=== PATIENT | female | born 1950 | race Hispanic/Latino ===

== ENCOUNTER 2016-07-31 09:07 | Day surgery (SDC) | payer OTHER ==
[~2016-07-31 09:07] MED LIST: ASPI-973 PO; ATOR80TA77 PO; FLUO40CA PO; GABA-502 PO; GLYB2.5T4 PO; ISOS120T6 PO; LORA0.5T PO; Lidocaine Topical 2% 30 mL Jelly ONE; MAGN400T4 PO; MECL-114 PO; METF500T4 PO; MULT-666 PO; NITR0.4T6 SL; OXYC5TAB72 PO; PANT40TA3 PO; PRAM0.256 PO; RANO10003 PO; TACR30OI4 TOP; TIZA4TAB4 PO
== END 2016-07-31 23:59 | disposition home or self-care (01) ==
LOC: END 09:07
PROVIDERS: ATTEND Internal Medicine Gastroenterology
DX: K44.9 Diaphragmatic hernia without obstruction or gangrene (principal); K22.4 Dyskinesia of esophagus; K21.9 Gastro-esophageal reflux disease without esophagitis; R13.10 Dysphagia, unspecified; D64.9 Anemia, unspecified; E78.5 Hyperlipidemia, unspecified; G47.33 Obstructive sleep apnea (adult) (pediatric); E11.9 Type 2 diabetes mellitus without complications; I25.10 Atherosclerotic heart disease of native coronary artery without angina pectoris; Z79.82 Long term (current) use of aspirin; Z79.84 Long term (current) use of oral hypoglycemic drugs; Z79.891 Long term (current) use of opiate analgesic; Z95.1 Presence of aortocoronary bypass graft

== ENCOUNTER 2016-08-20 11:32 | Observation (INO) | payer OTHER ==
[~2016-08-20] VITALS: Ht 154.9 cm; Wt 89.3 kg
[~2016-08-20 11:32] MED LIST changes: -Lidocaine Topical 2% 30 mL Jelly ONE
[2016-08-20 11:52] VITALS: BP 76/51; PULSE 61; RESP 15; O2SAT 95
[2016-08-20] MEDS ORDERED: 0.9% Sodium Chloride 1,000 ML IV ONE ×2 (12:07→14:40)
--- NOTE | 2016-08-20 12:07 | ED.REPORT ---
HPI-General Illness Date of Service Aug 20, 2016 ED Provider: Edward Francis MD 66 year old female with a history of diabetes, CAD, HTN, and hyperlipidemia presents to the ER accompanied by multiple female family members with intermittent pre-syncopal episodes since 04/2016. Typically these episodes are associated with exertion and can last over an hour. Symptoms are relieved with rest. Associated symptoms include low BP, palpitations, lethargy and decreased LOC with symptom onset. Patient also reports occasional chest pain and shortness of breath with exertion, though also sometimes occurring at rest. She denies any instances of LOC. Symptoms tend to resolve on their own. Patient is a poor historian. Nursing Notes Stated Complaint: LOW BLOOD SUGAR Chief Complaint: General Complaint Nursing Notes Reviewed: Yes Allergies: Coded Allergies: Penicillins (Verified Allergy, Severe, RASH, 08/20/16) TAPE (Verified Allergy, Intermediate, rash, 08/20/16) Scheduled Aspirin (Aspirin) 81 Mg Tablet 81 MG PO DAILY Atorvastatin Calcium (Atorvastatin Calcium) 80 Mg Tablet 80 MG PO DAILY Fluoxetine (Fluoxetine) 40 Mg Capsule 40 MG PO DAILY Gabapentin (Gabapentin) 300 Mg Capsule 300 MG PO QAM Gabapentin (Gabapentin) 300 Mg Capsule 300 MG PO every afternoon Gabapentin (Gabapentin) 300 Mg Capsule 600 MG PO HS Glyburide (Glyburide) 2.5 Mg Tablet 2.5 MG PO DAILY Isosorbide MN ER (Isosorbide MN ER) 120 Mg Tab.er.24h 30 MG PO DAILY Lisinopril (Lisinopril) 20 Mg Tablet 20 MG PO BID Magnesium Oxide (Magnesium Oxide) 400 Mg Tablet 400 MG PO BID Metformin (Metformin) 500 Mg Tablet 500 MG PO BID Multivitamin (Once Daily) 1 Each Tablet 1 EACH PO DAILY Pantoprazole DR (Pantoprazole DR) 40 Mg Tablet.dr 40 MG PO DAILY Pramipexole Dihydrochloride (Pramipexole Dihydrochloride) 0.25 Mg Tablet 0.5 MG PO TID Ranolazine ER (Ranexa) 1,000 Mg Tablet 1,000 MG PO BID Tizanidine (Tizanidine) 4 Mg Tablet 4 MG PO BID Scheduled PRN Lorazepam (Lorazepam) 0.5 Mg Tablet 0.5 MG PO TID PRN PRN For Anxiety Meclizine (Bonine) 25 Mg Tab.chew 25 MG PO TID PRN PRN For Dizziness Metoclopramide (Metoclopramide) 10 Mg Tablet 10 MG PO QID PRN PRN For Nausea Nitroglycerin SL (Nitroglycerin SL) 0.4 Mg Tab.subl 0.4 MG SL Q5MIN PRN PRN For Chest Pain Tacrolimus (Tacrolimus) 30 Gm Oint...g. 1 APPLIC TOP BID PRN PRN rash oxyCODONE (oxyCODONE) 5 Mg Tablet 5 MG PO q6 hours PRN PRN For Pain General Time Seen by MD: 12:06 Chief Complaint Other (Pre-Syncope) Hx Obtained From: Patient Arrived By: Walk-in Sudden in Onset?: No Onset Occurred: More than a week ago... 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 Past Medical History Gastroporesis Anxiety Chronic pain Sleep apnea Tinnitis Reports: Coronary artery disease, Diabetes mellitus, Hyperlipidemia, Hypertension Reports: Depression Past Surgical History Triple bypass 2009 Cardiac Cath 2012 Laminectomy Bladder sling Family History Noncontributory Smoking History Never Smoker Social History Alcohol Use: Denies alcohol use Drug Use: Denies drug use Other Social History: Good social support, Local resident Ambulatory Status Independent Review of Systems Full Review of Systems Constitutional: Reports: Lethargy, Denies: Chills, Fever Respiratory: Reports: Shortness of breath, Denies: Non-productive cough Cardiovascular: Reports: Chest pain, Palpitations GI: Reports: Diarrhea, Denies: Nausea, Vomiting Neurologic: Reports: Change LOC, Dizziness, Lightheaded, Denies: Focal weakness, Headache, Numbness, Slurred speech, Syncope, Unable to speak, Vision change Complete sys rev & neg: except as marked. Physical Exam Vital Signs Vital Signs Date Time Temp Pulse Resp B/P Pulse Ox O2 Delivery O2 Flow Rate FiO2 08/20/16 13:23 54 20 98/47 100 08/20/16 11:52 35.6 61 15 76/51 95 Room Air Initial VS: Reviewed Head / Eyes: Atraumatic, Normocephalic Neck: Supple, Non-tender, Full range of motion Extremities: Vascular intact, Neuro intact, No swelling, No tenderness Skin: Warm, Dry, No cyanosis Psychiatric: Mood/affect normal, Behavior normal, Normal thought content General/Constitutional: Awake, Alert, No acute distress, Well appearing, Well developed, Well hydrated, Well nourished, Cooperative Respiratory / Chest: Breath sounds NL, No respiratory distress, No rales, No rhonchi, No wheezing Cardiovascular: Heart rate NL, Regular rhythm, Heart sounds NL Heart Sounds / Murmur: Positive: Systolic murmur present.. (II/) Neurologic: Oriented X3, Speech NL, No motor deficits, No sensory deficits Interpretation & Diagnostics Lab Results Interpretation Result Diagram: 08/20/16 1210 08/20/16 1210 Test 08/20/16 12:10 White Blood Count 10.2th/mm3 (3.8-10.1) Red Blood Count 3.86mil/mm3 (3.90-5.20) Hemoglobin 11.7g/dL (12.0-15.6) Hematocrit 35.8% (35.0-46.0) Mean Corpuscular Volume 92.7fL (81-100) Mean Corpuscular Hemoglobin 30.3pg (27.0-35.0) Mean Corpuscular Hemoglobin Concent 32.7% (32.0-37.0) Red Cell Distribution Width 12.8% (12.3-15.4) Platelet Count 273bil/L (150-400) Neutrophils (%) (Auto) 64.2% (40-74) Lymphocytes (%) (Auto) 28.2% (14-46) Monocytes (%) (Auto) 5.8% (4-12) Eosinophils (%) (Auto) 1.4% (0-5) Basophils (%) (Auto) 0.2% (0-3) Sodium Level 135mEq/L (134-144) Potassium Level 4.4mEq/L (3.5-5.2) Chloride Level 97mEq/L (97-108) Carbon Dioxide Level 21mmol/L (18-29) Blood Urea Nitrogen 17mg/dL (8-27) Creatinine 1.23mg/dL (0.57-1.00) Estimat Glomerular Filtration Rate 63mL/min (>59) Glucose Level 170mg/dL (60-99) Calcium Level 9.1mg/dL (8.5-10.1) Total Bilirubin 0.4mg/dL (0.0-1.2) Aspartate Amino Transf (AST/SGOT) 16U/L (0-50) Alanine Aminotransferase (ALT/SGPT) 14U/L (0-32) Alkaline Phosphatase 75U/L (25-165) Total Protein 6.6g/dL (6.4-8.4) Albumin 4.1g/dL (3.4-5.0) ECG Interpretation ECG Interpretation: Sinus rhythm, rate [address] segment changes T wave inversion in anteroseptal leads and diffuse T wave flattening When compared to ECG 06/16/2016 there are no significant changes Time: 13:21 Interpreted by: ED physician Re-Eval/Medical Decision Med Decision/Clinical Course 66 year old female with a history of diabetes, CAD, HTN, and hyperlipidemia presents to the ER accompanied by multiple female family members with intermittent pre-syncopal episodes since 04/2016. Typically these episodes are associated with exertion and can last over an hour. Symptoms are relieved with rest. Associated symptoms include low BP, palpitations, lethargy and decreased LOC with symptom onset. Patient provides very limited history and seems to lack insight into her underlying medical condition. Upon arrival she is quite hypertensive with a systolic blood pressure in the 70s spell responds quickly to fluid bolus and has normal mentation. Examination reveals significant systolic murmur and upon chart review I see that echocardiogram obtained last year demonstrated dilated right ventricle with significant evidence of pulmonary hypertension and right to left intracardiac shunt. Laboratory studies were notable as below: Leukocytosis 10.2 Stable hematocrit Creatinine 1.23 No significant electrolyte abnormalities Negative troponin After fluid bolus blood pressure stabilized, patient remained with normal neurologic status. Patient discussed with cardiology and echocardiogram as above reviewed. At this time my suspicion is that the patient's presyncopal episodes are related to low cardiac output in the setting of known significant pulmonary hypertension and right to left shunt causing systemic circulation of the deoxygenated blood. The patient seems to lack insight into her underlying problems stating that she has been seen by tinsmith apprentice and told that her " heart is fine". I feel that at this time the patient requires further workup and likely repeat echocardiogram to further evaluate the degree of her shunt and coronary hypertension. She has now been stabilized and I feel that she is appropriate for admission to the CCU. Patient was discussed with accepting hospitalist and consultation with cardiology. Source of Hx: Old records Time of Eval: 14:26 Re-Evaluation/Progress Note: Discussed lab and physical examination findings and need for admission. Patient is amenable to the plan. Consultation #1: Referral / Consult Name: Genoveva Bueno MD Consulted With: Hospitalist Call Returned at: 14:35 Etl Manager: Agrees with eval, Agrees with plan, Accepts admit Consultation #2: Referral / Consult Name: Brandon Humphries MD Consulted With: Cardiology Call Returned at: 14:39 Etl Manager: Will see patient Counseled Regarding: Diagnosis, Lab results, Need for admission Discharge & Departure Primary Impression: Pre-syncope Additional Impressions: Hypotension Hypotension type: unspecified hypotension type Qualified Code: I95.9 - Hypotension, unspecified Pulmonary hypertension Right to left cardiac shunt Altered mental status Altered mental status type: unspecified Qualified Code: R41.82 - Altered mental status, unspecified Disposition: ADMITTED TO HOSPITAL Discharge Condition All VS Reviewed: Yes Condition: Stable Referrals: Yehuda Garcia MD (PCP) Crit Care Except Billable Proc Time Spent: 105-134 minutes Services Performed: Patient management by me, Time spent at bedside, Reviewing test results, Reviewing imaging, Discussing patient care, Documentation in record, Time with fam/surrogate Critical Care Notes: Reviewing old records, discussion with tinsmith apprentice, discussion with the patient and discussing with accepting physician in addition to documentation in reviewing laboratory results/studies. Vlad Attestation Portions of this note were transcribed by Woodrow Quiroz. I, Dr. Francis, personally performed the history, physical exam and medical decision-making; I reviewed and confirmed the accuracy of the information in the transcribed note. Signed by: Vlad Mc, 08/20/2016 and 14:39 copies to: Yehuda Garcia MD, Beck O MD Aug 20, 2016 12:07 WOODROW QUIROZ Aug 20, 2016 13:25
[2016-08-20 12:27] LABS: BASOPHILS % (AUTO) 0.2 % (0-3); EOSINOPHILS % (AUTO) 1.4 % (0-5); MONOCYTES % (AUTO) 5.8 % (4-12); Mean Corpuscular Hemoglobin 30.3 pg (27.0-35.0); Mean Corpuscular Volume 92.7 fL (81-100); NEUTROPHILS % (AUTO) 64.2 % (40-74); Platelet Count 273 bil/L (150-400)
[2016-08-20 13:23] VITALS: BP 98/47; PULSE 54; RESP 20; O2SAT 100
[2016-08-20] MEDS ORDERED: Ondansetron 2 mg/mL 2 mL Inj IVPUSH PRN (17:10)
[2016-08-20] MEDS ORDERED: Alum-Mag Hydrox-Simeth 30 mL Suspension PO PRN (17:10)
[2016-08-20] MEDS ORDERED: Polyethylene Glycol (PEG) 17 Gm Powder PO PRN (17:10)
[2016-08-20] MEDS ORDERED: LORazepam 0.5 mg Tablet PO PRN (17:25)
--- NOTE | 2016-08-20 17:40 | PCM.HPMED ---
Subjective Date of Service Aug 20, 2016 Primary Provider: Admitting Physician: Genoveva Bueno MD Primary Care Physician: Yehuda Garcia MD Attending Physician: Genoveva Bueno MD Admit Status: From the Emergency Department, 23-Hour Observation, [facility] Telemetry Chief Complaint: Episodes of near syncope History of Present Illness: This is a 66-year-old female who presents to the emergency room with episodes of feeling very lightheaded these occur mostly with exertional activities such as cleaning the house. Does not happen at rest. She also describes that when these happen she checks her blood pressure and it is low. She denies any chest pain with these episodes at least recently but has had chest pain with them in the past. She notes they have been going on for at least a few weeks or longer. She was admitted here from June 16 to June 18 with hypotension and this was related to diarrhea and electrolyte abnormalities. She denies that these episodes are related to hypoglycemia. She did have an echocardiogram done 04/30/2016 and the reason for the study was hypotension. The results of this show left ventricle size is upper limits of normal. Left ventricle is hyperdynamic with an ejection fraction estimated to be 70-75%. Right ventricle is borderline dilated right ventricular systolic function is normal the atrial septum is aneurysmal. Bubble study with septal shift indicates right to left shunt moderate tricuspid regurgitation noted and compared to previous echo there was an increase in tricuspid regurgitation severity. Also compared to prior echo there it has been an increase in the severity of pulmonary hypertension. Review of Systems: Patient denies any fevers chills all other review of systems are reviewed and are negative except for as in history of present illness. Allergies Coded Allergies: Penicillins (Verified Allergy, Severe, RASH, 06/16/16) TAPE (Verified Allergy, Intermediate, rash, 06/16/16) Home Medications Scheduled Aspirin (Aspirin) 81 Mg Tablet 81 MG PO DAILY Atorvastatin Calcium (Atorvastatin Calcium) 80 Mg Tablet 80 MG PO DAILY Fluoxetine (Fluoxetine) 40 Mg Capsule 40 MG PO DAILY Gabapentin (Gabapentin) 300 Mg Capsule 600 MG PO BID 2 in the morning, 2 in the afternoon Glyburide (Glyburide) 2.5 Mg Tablet 2.5 MG PO DAILY Isosorbide MN ER (Isosorbide MN ER) 120 Mg Tab.er.24h 30 MG PO DAILY Magnesium Oxide (Magnesium Oxide) 400 Mg Tablet 400 MG PO BID Metformin (Metformin) 500 Mg Tablet 1,000 MG PO BID Multivitamin (Once Daily) 1 Each Tablet 1 EACH PO DAILY Pantoprazole DR (Pantoprazole DR) 40 Mg Tablet.dr 40 MG PO DAILY Pramipexole Dihydrochloride (Pramipexole Dihydrochloride) 0.25 Mg Tablet 0.375 MG PO TID Ranolazine ER (Ranexa) 1,000 Mg Tablet 1,000 MG PO BID Tacrolimus (Tacrolimus) 30 Gm Oint...g. 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 Past Medical History Gastroporesis Anxiety Chronic pain Sleep apnea Tinnitis Reports: Coronary artery disease, Diabetes mellitus, Hyperlipidemia, Hypertension Reports: Depression Past Surgical History Triple bypass 2010 Cardiac Cath 2013 Laminectomy Bladder sling Family History No history of cardiac disease Social History Hx Alcohol Use: No Hx Substance Use: No Hx Tobacco Use: No Smoking Status: Never Smoker Living Arrangement: with Family Exam Vital Signs Vital Sign - Last Date Time Temp Pulse Resp B/P Pulse Ox O2 Delivery O2 Flow Rate FiO2 08/20/16 17:10 36.6 66 20 125/52 99 Room Air Exam Constitutional: Middle-aged woman in no acute distress Head: Normocephalic atraumatic Eyes: PERRLA DC EOMI Mouth: No lesions neck: Carotids 2+ over 4 without bruits Chest: Clear to auscultation Cor: Regular rate and rhythm S1-S2 with 2/6 systolic ejection murmur Abdomen: Soft nontender bowel sounds present Extremities: No pedal edema Skin: No rashes Psych: Mood and affect are appropriate Neuro: Alert and oriented 3, motor strength is intact bilaterally Lab and Diagnostics Labs Laboratory Tests 72 Hours Test 08/20/16 12:10 White Blood Count 10.2th/mm3 (3.8-10.1) Red Blood Count 3.86mil/mm3 (3.90-5.20) Hemoglobin 11.7g/dL (12.0-15.6) Hematocrit 35.8% (35.0-46.0) Mean Corpuscular Volume 92.7fL (81-100) Mean Corpuscular Hemoglobin 30.3pg (27.0-35.0) Mean Corpuscular Hemoglobin Concent 32.7% (32.0-37.0) Red Cell Distribution Width 12.8% (12.3-15.4) Platelet Count 273bil/L (150-400) Neutrophils (%) (Auto) 64.2% (40-74) Lymphocytes (%) (Auto) 28.2% (14-46) Monocytes (%) (Auto) 5.8% (4-12) Eosinophils (%) (Auto) 1.4% (0-5) Basophils (%) (Auto) 0.2% (0-3) Sodium Level 135mEq/L (134-144) Potassium Level 4.4mEq/L (3.5-5.2) Chloride Level 97mEq/L (97-108) Carbon Dioxide Level 21mmol/L (18-29) Blood Urea Nitrogen 17mg/dL (8-27) Creatinine 1.23mg/dL (0.57-1.00) Estimat Glomerular Filtration Rate 63mL/min (>59) Glucose Level 170mg/dL (60-99) Calcium Level 9.1mg/dL (8.5-10.1) Total Bilirubin 0.4mg/dL (0.0-1.2) Aspartate Amino Transf (AST/SGOT) 16U/L (0-50) Alanine Aminotransferase (ALT/SGPT) 14U/L (0-32) Alkaline Phosphatase 75U/L (25-165) Troponin T < 0.010ug/L (0.0-0.011) Total Protein 6.6g/dL (6.4-8.4) Albumin 4.1g/dL (3.4-5.0) Result Diagram: 08/20/16 1210 08/20/16 1210 12-lead ECG Sinus rhythm rate of 60 with incomplete right bundle branch block no acute abnormalities noted compared to previous EKG in June. There is T-wave inversion in anterior septal leads and diffuse T-wave flattening. Assessment & Plan # Recurrent episodes of near syncope with exertional activity, subacute, present on admission Will recheck echocardiogram Cardiology was notified by OLGA Rodriguez regarding consultation Check serial troponins We will also anticipate nuclear pharmacological stress test tomorrow unless cardiology decides otherwise Keep on telemetry # Type II diabetes, chronic, present on admission Check 4 times a day blood sugars and place on subcutaneous insulin protocol Given procedure tomorrow we will go ahead and hold metformin and glipizide # DVT prophylaxis Place on subcutaneous Lovenox # CODE STATUS Patient is full code Pain Evaluation: Adequate Pain Control Resuscitation Status: CPR: Attempt Resuscitation Time spent 60 minutes Genoveva Bueno MD Aug 20, 2016 17:39
[2016-08-20] MEDS ORDERED: GABA-502 PO ×3 (17:42)
[2016-08-20] MEDS ORDERED: METO10TA3 PO (17:42)
[2016-08-20] MEDS ORDERED: LISI-567 PO (17:46)
[2016-08-20 18:36] VITALS: PULSE 57
[2016-08-20 18:40] VITALS: BP 117/60; PULSE 56; RESP 18; O2SAT 96
[2016-08-20 20:00] VITALS: PULSE 62
[2016-08-20] MEDS ORDERED: TACROLIMUS TOPICAL PRN (20:40)
[2016-08-20 20:50] VITALS: BP 147/69; PULSE 69; RESP 18; O2SAT 97
[2016-08-20] MEDS: Ranolazine ER 500 mg ER12 Tablet PO SCH (21:41)
[2016-08-20] MEDS: Heparin 5,000 Unit/mL Inj SUBQ SCH (21:47)
--- NOTE | 2016-08-20 22:30 | NUR ---
ADMIT Patient admit for hypotensive spells. Presents upon assessment as stable with little complaints beyond her chronic pain issues. Admit completed and oriented to room and hospital policy. Daughter staying in room for the night.
[2016-08-21] VITALS (8 sets, daily range): BP systolic 125–164; BP diastolic 78–99; PULSE 56–75; RESP 16–18; O2SAT 94–98
[2016-08-21] MEDS ORDERED: Isosorbide Mononitrate 30 mg ER24 Tablet PO SCH (07:30)
[2016-08-21] MEDS ORDERED: Pantoprazole 40 mg ER24 Tablet PO SCH (08:30)
[2016-08-21 08:53] LABS: BASOPHILS % (AUTO) 0.3 % (0-3); EOSINOPHILS % (AUTO) 2.1 % (0-5); MONOCYTES % (AUTO) 6.9 % (4-12); Mean Corpuscular Hemoglobin 30.3 pg (27.0-35.0); Mean Corpuscular Volume 94.5 fL (81-100); NEUTROPHILS % (AUTO) 46.9 % (40-74); Platelet Count 249 bil/L (150-400)
[2016-08-21 09:09] LABS: INR 1.01 ratio
[2016-08-21 09:13] LABS: Magnesium 1.6 mg/dL (1.6-2.6)
[2016-08-21] MEDS: Ranolazine ER 500 mg ER12 Tablet PO SCH (11:34)
[2016-08-21] MEDS: Heparin 5,000 Unit/mL Inj SUBQ SCH (11:38)
--- NOTE | 2016-08-21 13:40 | NUR ---
Social Work Screen Note: SW met with patient at bedside to discuss discharge plan. Patient is a 66 year old female admitted under observation status on 08/20/16 for pre syncope. Patient payer as [facility]. Patient has no roasterman disability nor [place] benefits. Patient PCP as MD Garcia. Patient resides in [facility] with Jar[place], who assist with care needs. Patient states pharmacy of choice as [facility]. Patient has no previous HHC or SNF history. Patient has a walker, cane and CPAP at home. Patient states still drives independently and states daughter Joyce, [phone] also assist with needs. Patient has no AD at this time. SW provided patient with AD form for completion. Patient denied and need of HHC at this time. SW will continue to follow pending further clinical course. PLAN: Home with and familt support via POV. No anticipated discharge needs at this time. SW will continue to follow pending clinical course Nadja XAVIER
--- NOTE | 2016-08-21 13:47 | DRSVH ---
PROCEDURE: 1 DAY PHARMACOLOGICAL STRESS TEST Rest and pharmacological stress myocardial perfusion SPECT with gated imaging and ejection fraction RADIOPHARMACEUTICAL: 10.9 mCi Tc-99m tetrafosmin IV at rest and 29.1 mCi Tc-99m tetrafosmin IV at pea k effect of pharmacological stress. A [id number] was performed. INDICATIONS: NEAR SYNCOPE WITH EXERTION. TECHNIQUE: Radiopharmaceutical was injected at peak stress test, and also at rest. SPECT images wer e obtained. SPECT myocardial perfusion images were displayed in short axis, horizontal long axis, an d vertical long axis views. Gated images were reviewed using [employer] software. COMPARISON: None. CARDIAC STRESS: A pharmacologic stress test was performed under the supervision of an attending staff, using an infus ion of Regadenoson. Hemodynamic data: There is normal blood pressure and heart rate response to pharmacologic stress. Symptoms: Patient has chest pain that was concerning for angina during the pharmacological stress te st. Aminophylline: 100 mg EKG: No diagnostic changes of ischemia; no ectopy. FINDINGS: Raw data: There is good myocardial uptake of radiotracer. No significant motion artifacts. Left ventricle function: Gated images demonstrate normal left ventricular wall thickening. No segme ntal wall motion abnormalities. Left ventricle resting end diastolic volume is 66 mL. Left ventricl e stress ejection fraction is greater than 70%; normal range is above 45%. Myocardial perfusion: There is a small perfusion defect with mild to moderate intensity noted on the supine stress images along the apical lateral wall as well as the basal to mid lateral wall. On the supine rest images the apical perfusion defect and the lateral perfusion defect both normalize. On pr one stress imaging the apical perfusion defect resolves completely which makes the apical perfusion d efect on the apical more consistent with artifact but the basal to mid lateral wall perfusion defect is persistent. IMPRESSION: This is abnormal myocardial perfusion study. Overall there appears to be a small to moderate-sized pe rfusion defect with mild to moderate intensity along the basal and mid lateral wall that is consisten t with reversible ischemia. In comparison to the previous stress test in 06/2013, this was not presen t. Overall the is normal and there is no evidence of LV wall motion. Clinical correlation is recommen ded. Dictated by: Faustino Painting Jr., M.D. on 08/21/2016 at 13:39 Approved by: Faustino Painting Jr., M.D. on 08/21/2016 at 13:46
--- NOTE | 2016-08-21 16:47 | DRSVH ---
[facility] [address] [place] [address] Echocardiogram Report Name: MARLENY BERRY SStudy Date: 08/21 Hei ght: 63 in Hospital Exam Location: [facility] ght: 180 lb Gender: Female BSA : 1.8 m2 : 1950 Age: 66 yrs BP: 156/79 mmHg Reason For Study: Pre-Syncope Ordering Physician: HOSPITALIST [facility] Performed By: Maame Silva Referring Physician: Dr. Kaz Garcia, Dr. Matthew Humphries Interpretation Summary The left ventricle is normal in size, wall thickness, and systolic function without any focal wall motion abnormalities. The ejection fraction is estimated to be 60-65%. Assessment of diastolic parameters indicates a relaxation abnormality of the left ventricle, consistent with normal filling pressures. The right ventricle is at the upper limits of normal in size. A moderator band is seen in the right ventricle. Right ventricular systolic function is at the lower limits of normal. The right ventricular systolic pressure is estimated at 36 mmHg assuming a right atrial pressure of 8 mm Hg. The left atrium is moderately dilated. The superior aspect of the right atrium appears to be compressed by an extrinsic structure. Right atrial size is normal. The atrial septum is aneurysmal. There is no Doppler evidence for an interatrial shunt. There is no significant valvular heart disease. The aortic root is normal size. Procedure: A two-dimensional transthoracic echocardiogram with color flow and Doppler was performed. The study quality was technically adequate. Comparison is made with the echocardiogram of 04/30/2016. The patient was in normal sinus rhythm during the exam. Left Ventricle: The left ventricle is normal in size, wall thickness, and systolic function without any focal wall motion abnormalities. There is no ventricular septal defect visualized. The ejection fraction is estimated to be 60-65%. Assessment of diastolic parameters indicates a relaxation abnormality of the left ventricle, consistent with normal filling pressures. Right Ventricle: The right ventricle is at the upper limits of normal in size. A moderator band is seen in the right ventricle. Right ventricular systolic function is at the lower limits of normal. Atria: The left atrium is moderately dilated. The superior aspect of the right atrium appears to be compressed by an extrinsic structure. Right atrial size is normal. The atrial septum is aneurysmal. There is no Doppler evidence for an interatrial shunt. Mitral Valve: There is mild mitral annular calcification. The mitral valve leaflets are mildly calcified. There is trace mitral regurgitation. Aortic Valve: The aortic valve is normal in structure and function. The aortic valve is slightly calcified. No aortic regurgitation is present. Tricuspid Valve: There is mild tricuspid regurgitation. The right ventricular systolic pressure is estimated at 36 mmHg assuming a right atrial pressure of 8 mm Hg. Pulmonic Valve: The pulmonic valve is not well visualized. There is trace pulmonic regurgitation. There is no significant valvular heart disease. Great Vessels: The aortic root is normal size. The ascending aorta is normal in size. The IVC is of normal diameter and collapses less than 50% with a sniff. This suggests a right atrial pressure of 8 mm Hg. Pericardium/ Pleura There is no pericardial effusion. MMode/2D Measurements & Calculations LVIDd: 4.9 cm RA long axis LVOT diam LVIDs: 3.1 cm LA A2 area: 23.0 cm FS: 36.1 % LA A4 area: 21.9 cm RA area Ao root diam EPSS: 0.79 cm LA length (vol): 5.2 cm IVSd: 1.0 cm LA vol: 81.7 ml : 12.4 cm Aortic Jxn LVPWd: 1.0 cm LA vol index RA vol: 26.5 ml RA asc Aorta : 14.7 mm2 Diam: 3.1 cm IVC diam: 0.82 cm LV cazares. diameter/BSA LV sys. diameter/BSA RVD1 (basal) TAPSE: 1.6 cm (cm/m^2): 2.7 (cm/m^2): 1.7 Doppler Measurements & Calculations Ao V2 max MV E max naseem MV E/A: 0.66 TR max naseem : 178.3 cm/sec : 63.2 cm/sec Med Peak E' Naseem : 264.6 cm/sec Ao max PG MV A max naseem TR max PG : 12.7 mmHg : 95.5 cm/sec E/E' med: 10.5 : 28.0 mmHg Ao mean PG MV P1/2t: 57.3 msec Lat Peak E' Naseem PA V2 max : 101.5 cm/sec LVOT Max Naseem E/E' lat: 4.9 PA mean PG : 98.7 cm/sec E/e' average: 7.7 Pulm A Revs Dur PA Accel Time HANNAH(I,D): 1.8 cm : 0.07 sec sev ratio MV A dur: 0.10 sec MV dec time MV P1/2t max naseem Ao V2 mean LV V1 max PG : 0.20 sec : 115.7 cm/sec MVA(P1/2t): 3.8 cm2 Ao V2 VTI: 35.9 cm LV V1 VTI HANNAH(V,D): 1.6 cm2 : 21.5 cm PA V2 mean HANNAH indexed to BSA Pulm A Revs Dur - MV A : 67.9 cm/sec (cm^2/m^2): 0.98 Dur: 0.00 msec Reading Physician:PM
--- NOTE | 2016-08-21 17:56 | NUR ---
BP Pt's blood pressure stable this shift. Pt steady on feet in room. No complaints of dizziness or light-headedness. Pt able to discuss plan w/ cardiology today and verbalizes good understanding.
[2016-08-21] MEDS ORDERED: ATEN25TA PO (18:08)
--- NOTE | 2016-08-21 18:12 | PCM.DIMED ---
Discharge Instructions Date of Service Aug 21, 2016 Dates of Hospitalization Aug 20, 2016 at 16:32 Discharge Diagnosis Discharge Diagnosis # Recurrent episodes of lightheadedness and near syncope, present on admission. Unclear exact etiology but possibly due to medication side-effect ( namely, Ranexa) # Abnormal myocardial perfusion study. "Overall there appears to be a small to moderate-sized perfusion defect with mild to moderate intensity along the basal and mid lateral wall that is consistent with reversible ischemia." # Type II diabetes, chronic, present on admission. Diet Low fat, Low Sodium, Heart Healthy, Diabetic Activity No restrictions Call your provider Fever or Chills, Shortness of breath, Bleeding, Chest pain Patient Instructions Seek immediate medical attention if any new or worsening signs or symptoms occur. Follow-up plan 1. Followup with your primary care provider (Dr. Garcia) in 2-3 weeks as previously scheduled 2. Followup with your mold yard worker (Dr. Parker) in 4-8 weeks. Follow-up Provider: Yehuda Garcia MD Provider: Roseanne Parker MD, Masoud Aug 21, 2016 18:12
--- NOTE | 2016-08-21 18:19 | PCM.DC.MED ---
Discharge Summary Date of Service Aug 21, 2016 Dates of Hospitalization Date of Hospital Admission Aug 20, 2016 at 16:32 Date of Discharge: Aug 21, 2016 Providers: Admitting Physician: Genoveva Bueno MD Primary Care Physician: Yehuda Garcia MD Attending Physician: Genoveva Bueno MD Diagnosis at Time of Discharge Diagnosis at Time of Discharge # Recurrent episodes of lightheadedness and near syncope, present on admission. Unclear exact etiology but possibly due to medication side-effect ( namely, Ranexa) # Abnormal myocardial perfusion study. "Overall there appears to be a small to moderate-sized perfusion defect with mild to moderate intensity along the basal and mid lateral wall that is consistent with reversible ischemia." # Type II diabetes, chronic, present on admission. Consultations 1. Cardiology (Dr. Humphries) Procedures ECG 12 Lead Sinus rhythm rate of 60 with incomplete right bundle branch block no acute abnormalities noted compared to previous EKG in June. There is T-wave inversion in anterior septal leads and diffuse T-wave flattening. Cardiac Echo Impression Date of Service: 08/21/16 1798 Echocardiogram Report Interpretation Summary The left ventricle is normal in size, wall thickness, and systolic function without any focal wall motion abnormalities. The ejection fraction is estimated to be 60-65%. Assessment of diastolic parameters indicates a relaxation abnormality of the left ventricle, consistent with normal filling pressures. The right ventricle is at the upper limits of normal in size. A moderator band is seen in the right ventricle. Right ventricular systolic function is at the lower limits of normal. The right ventricular systolic pressure is estimated at 36 mmHg assuming a right atrial pressure of 8 mm Hg. The left atrium is moderately dilated. The superior aspect of the right atrium appears to be compressed by an extrinsic structure. Right atrial size is normal. The atrial septum is aneurysmal. There is no Doppler evidence for an interatrial shunt. There is no significant valvular heart disease. The aortic root is normal size. Reading Physician:ISAÍAS Other Diagnostics Date of Service: 08/21/16 1720 PROCEDURE: 1 DAY PHARMACOLOGICAL STRESS TEST Rest and pharmacological stress myocardial perfusion SPECT with gated imaging and ejection fraction IMPRESSION: This is abnormal myocardial perfusion study. Overall there appears to be a small to moderate-sized perfusion defect with mild to moderate intensity along the basal and mid lateral wall that is consistent with reversible ischemia. In comparison to the previous stress test in 06/2013, this was not present. Overall the is normal and there is no evidence of LV wall motion. Clinical correlation is recommended. Dictated by: Faustino Painting Jr., M.D. on 08/21/2016 at 13:39 Approved by: Faustino Painting Jr., M.D. on 08/21/2016 at 13:46 Brief History As noted in H&P by Dr. Bueno: This is a 66-year-old female who presents to the emergency room with episodes of feeling very lightheaded these occur mostly with exertional activities such as cleaning the house. Does not happen at rest. She also describes that when these happen she checks her blood pressure and it is low. She denies any chest pain with these episodes at least recently but has had chest pain with them in the past. She notes they have been going on for at least a few weeks or longer. She was admitted here from June 16 to June 18 with hypotension and this was related to diarrhea and electrolyte abnormalities. She denies that these episodes are related to hypoglycemia. She did have an echocardiogram done 04/30/2016 and the reason for the study was hypotension. The results of this show left ventricle size is upper limits of normal. Left ventricle is hyperdynamic with an ejection fraction estimated to be 70-75%. Right ventricle is borderline dilated right ventricular systolic function is normal the atrial septum is aneurysmal. Bubble study with septal shift indicates right to left shunt moderate tricuspid regurgitation noted and compared to previous echo there was an increase in tricuspid regurgitation severity. Also compared to prior echo there it has been an increase in the severity of pulmonary hypertension. Hospital Course # Recurrent episodes of near syncope with exertional activity, subacute, present on admission. improved. - ruled out for ACS by negative cardiac enzymes - stress test noted to be abnormal but echo unremarkable (details as noted above ) - seen by cardiology consult (Dr. Humphries) and his impression is that patient' s presenting symptoms likely 2ndry to Ranexa side effect. Per Dr. Humphries's recommendations will stop Ranexa and instead start on Atenolol 25mg daily. No further intervention recommended at this time regarding abnormal stress test and instead he recommends f/u w/ Dr. Parker in about 2 months. patient without any CP prior or during this hospitalization. # Type II diabetes, chronic, present on admission. stable. by day of d/c lungs CTA bilat. CV: RRR. Exam Vital Signs (Last) Date Time Temp Pulse Resp B/P Pulse Ox O2 Delivery O2 Flow Rate FiO2 08/21/16 17:33 36.2 72 18 125/80 94 Room Air Test 08/20/16 12:10 08/21/16 05:20 08/21/16 08:37 Total Bilirubin 0.4mg/dL (0.0-1.2) Aspartate Amino Transf (AST/SGOT) 16U/L (0-50) Alanine Aminotransferase (ALT/SGPT) 14U/L (0-32) Alkaline Phosphatase 75U/L (25-165) Total Protein 6.6g/dL (6.4-8.4) Albumin 4.1g/dL (3.4-5.0) White Blood Count 9.0th/mm3 (3.8-10.1) Red Blood Count 3.80mil/mm3 (3.90-5.20) Hemoglobin 11.5g/dL (12.0-15.6) Hematocrit 35.9% (35.0-46.0) Mean Corpuscular Volume 94.5fL (81-100) Mean Corpuscular Hemoglobin 30.3pg (27.0-35.0) Mean Corpuscular Hemoglobin Concent 32.0% (32.0-37.0) Red Cell Distribution Width 13.0% (12.3-15.4) Platelet Count 249bil/L (150-400) Neutrophils (%) (Auto) 46.9% (40-74) Lymphocytes (%) (Auto) 43.6% (14-46) Monocytes (%) (Auto) 6.9% (4-12) Eosinophils (%) (Auto) 2.1% (0-5) Basophils (%) (Auto) 0.3% (0-3) Sodium Level 142mEq/L (134-144) Potassium Level 4.3mEq/L (3.5-5.2) Chloride Level 104mEq/L (97-108) Carbon Dioxide Level 24mmol/L (18-29) Blood Urea Nitrogen 11mg/dL (8-27) Creatinine 0.97mg/dL (0.57-1.00) Estimat Glomerular Filtration Rate 83mL/min (>59) Glucose Level 141mg/dL (60-99) Calcium Level 9.1mg/dL (8.5-10.1) Magnesium Level 1.6mg/dL (1.6-2.6) Troponin T 0.010ug/L (0.0-0.011) Thyroid Stimulating Hormone (TSH) 2.220uIU/mL (0.450-4.500) Prothrombin Time 10.8sec (8.1-12.5) Prothromb Time International Ratio 1.01ratio Activated Partial Thromboplast Time 27.1sec (22.8-33.0) Discharge Medications Discharge Medications Aspirin (Aspirin) 81 Mg Tablet 81 MG PO DAILY (Reported) Atenolol (Atenolol) 25 Mg Tablet 25 MG PO DAILY Prescribed by: PATRICIA LOVING MD Atorvastatin Calcium (Atorvastatin Calcium) 80 Mg Tablet 80 MG PO DAILY ( Reported) Fluoxetine (Fluoxetine) 40 Mg Capsule 40 MG PO DAILY (Reported) Gabapentin (Gabapentin) 300 Mg Capsule 600 MG PO BID (Reported) Glyburide (Glyburide) 2.5 Mg Tablet 2.5 MG PO DAILY (Reported) Isosorbide MN ER (Isosorbide MN ER) 120 Mg Tab.er.24h 30 MG PO DAILY (Reported) Lisinopril (Lisinopril) 20 Mg Tablet 20 MG PO BID (Reported) Magnesium Oxide (Magnesium Oxide) 400 Mg Tablet 400 MG PO BID (Reported) Metformin (Metformin) 500 Mg Tablet 500 MG PO BID (Reported) Multivitamin (Once Daily) 1 Each Tablet 1 EACH PO DAILY (Reported) Pantoprazole DR (Pantoprazole DR) 40 Mg Tablet.dr 40 MG PO DAILY (Reported) Pramipexole Dihydrochloride (Pramipexole Dihydrochloride) 0.25 Mg Tablet 0.5 MG PO TID (Reported) Tizanidine (Tizanidine) 4 Mg Tablet 4 MG PO BID (Reported) As needed Lorazepam (Lorazepam) 0.5 Mg Tablet 0.5 MG PO TID PRN PRN For Anxiety (Reported ) Meclizine (Bonine) 25 Mg Tab.chew 25 MG PO TID PRN PRN For Dizziness (Reported) Metoclopramide (Metoclopramide) 10 Mg Tablet 10 MG PO QID PRN PRN For Nausea ( Reported) Nitroglycerin SL (Nitroglycerin SL) 0.4 Mg Tab.subl 0.4 MG SL Q5MIN PRN PRN For Chest Pain (Reported) Tacrolimus (Tacrolimus) 30 Gm Oint...g. 1 APPLIC TOP BID PRN PRN rash (Reported ) oxyCODONE (oxyCODONE) 5 Mg Tablet 5 MG PO q6 hours PRN PRN For Pain (Reported) Followup Plan Disposition: Home Follow-up plan 1. Followup with your primary care provider (Dr. Garcia) in 2-3 weeks as previously scheduled 2. Followup with your [employer] head of [employer] (Dr. Parker) in 4-8 weeks. Discharge Diet: Low fat, Low Sodium, Heart Healthy, Diabetic Discharge Activity: No restrictions Patient Instructions Seek immediate medical attention if any new or worsening signs or symptoms occur. Follow-up Provider: Yehuda Garcia MD Provider: Roseanne Parker MD Time spent 35 min copies to: Yehuda Garcia MD; Roseanne Parker MD, Masoud Aug 21, 2016 18:18
--- NOTE | 2016-08-21 19:03 | NUR ---
Discharge Pt d/c home as ordered. Removed IV, catheter intact, minimal bleeding. Provided pt with d/c paperwork and instructions, including carenotes and prescriptions. Pt verbalized good understanding of all instructions and medications. Pt declined w/c, ambulated off kaur independently, home in private vehicle with family.
--- NOTE | 2016-08-21 20:26 | CONS ---
[address] [address] CONSULTATION REPORT PATIENT: MARLENY BERRY : 1950 MR#: [id number] ADMIT: 08/20/2016 JOB ID: [id number] DATE OF SERVICE: 08/21/2016 HISTORY OF PRESENT ILLNESS: The patient is a very pleasant 66-year-old diabetic female hospitalized with symptoms of recurrent dizziness. I have been asked by the hospital team to see her and assist with her evaluation. This patient states that she will have recurrent intermittent episodes of feeling very lightheaded though she has not been syncopal. These occur somewhat unpredictably and when she has checked her blood pressure previously, she has found that it has been significantly low. She presented to the emergency department for evaluation and was admitted for further investigation. She has a long history of ischemic heart disease dating back to evaluation of chest discomfort in 2009. She had a long history of gastroesophageal reflux and assumed that some of her chest discomfort was related to that. She had an exercise treadmill stress test done and developed typical angina-like chest discomfort with exertion associated with significant myocardial perfusion abnormalities, particularly the anterior wall and, for that reason, underwent diagnostic coronary angiography which demonstrated a totally occluded LAD with collateral circulation and disease involving her right coronary and circumflex artery as well. She underwent three-vessel coronary bypass graft surgery with an internal mammary graft to her LAD and vein bypass grafts to an obtuse marginal and her distal right coronary artery. This patient within a year or two developed recurrent symptoms of chest discomfort and was followed by Dr. Parker in our office with institution of escalating doses of antianginal medications. Ultimately, she ended up on carvedilol in addition to high-dose isosorbide mononitrate, in addition to amlodipine and finally a Ranexa with increasing doses to 1000 mg b.i.d. over the last couple of years. A cardiac catheterization was performed in 2012 demonstrating patent bypass grafts with moderate diabetic tubular atherosclerosis in her distal vessels particularly her LAD. In April of this year, she had problems with significant dehydration related to significant diarrhea and her carvedilol was significantly cut back as was her isosorbide mononitrate and her amlodipine was discontinued. She has remained on 1000 mg of ranolazine b.i.d. Over the last few years, she has had these episodes of intermittent lightheadedness which occur sporadically. There is some mild orthostatic component involved, but she will also have episodes of significant lightheadedness when she is up and about. She also has symptoms of intermittent chest discomfort that might occur a couple of times per week. These are described as a left precordial discomfort that might occur when she is lying in bed at rest or might occur when she is up and about. She states that there is no predicting the onset of the discomfort. Sometimes it happens if she is lying on her left side in bed and she clearly has a musculoskeletal palpable anterior left precordial chest discomfort today which mimics or reproduces some of her chest pains. She has had a couple of stress tests in the past but other than her chest before her bypass surgery in 2009, these have been pharmacologic studies so they were not able to identify the presence of exertion-related angina-like symptoms, unfortunately. Talking with this patient, she states that she is limited in terms of ambulation predominantly by back discomfort and symptoms involving her right leg which sound like sciatic discomfort. She gets around her house from room to room without any difficulty and is able to do a small amount of walking outside when she goes to the grocery store, but she no longer shops at [employer] or [employer] because the ambulation is too extensive and it hurts her back. She does not describe predictable exertional angina-like chest discomfort. She states that when she gets the discomfort, she will take a nitroglycerin and it gradually goes away but it takes about 15 minutes to do so without an obvious immediate effect. REVIEW OF SYMPTOMS: Is otherwise notable for the absence of nocturnal pulmonary congestion. She denies any palpitations or obvious dysrhythmias and has had no history of syncope. She has chronic gastroesophageal reflux symptoms. She also has a history of hypertension which has been treated and a history of untreated severe obstructive sleep apnea. She is on pramipexole for restless leg syndrome as well. SOCIAL HISTORY: Noncontributory. PHYSICAL EXAMINATION: Shows a very pleasant, 66-year-old female. She is 5 feet 1 inches tall and weighs 197 pounds. Body mass index of 34. HEENT examination: Unremarkable. There is no evidence of significant jugular venous distention. Lungs are clear. Heart tones are normal without significant murmur. Abdomen is obese. Distal extremities are warm and well perfused. Distal pedal pulses are faintly palpable. No significant lower extremity edema. EKG from our office is reviewed and demonstrates mildly to moderately prolonged QT interval likely related to the ranolazine. She has had variable ST and T-wave abnormalities in the past. Echocardiography demonstrates a normal sized left ventricle with hyperdynamic left ventricular contractility with an ejection fraction in the range of 70% to 75%. She has an aneurysmal interatrial septum with previous bubble study demonstrating probable PFO. Color flow Doppler in some cases has been a little bit suspicious for atrial septal defect, but in other views it appears to be sort of prominent with hepatic venous flow and I do not believe that there is any evidence of an ASD. Right ventricle is mildly enlarged and pulmonary artery pressure is slightly higher than before, but I suspect all of this is in fact related to untreated severe obstructive sleep apnea. LABORATORY: Notable for mild anemia, negative troponins, a normal TSH level, normal renal function and electrolytes. IMPRESSION: I think the patient's episodes of lightheadedness likely are related to the Ranexa medication, and I am not certain that her symptoms of somewhat atypical chest discomfort represent true angina. I have recommended that we discontinue Ranexa and add a low-dose beta-tyshawn such as atenolol 25 mg daily which she should tolerate both from a blood pressure and heart rate standpoint. I think it is reasonable for this patient to be discharged home and would suggest that she follow up with her primary care provider, Dr. Garcia, as scheduled in about three weeks and she should contact their office to schedule followup with Dr. Parker perhaps in another couple of months as well. I appreciate the opportunity of seeing this patient in consultation and hope that these suggestions are helpful.
== END 2016-08-21 19:13 | disposition home or self-care (01) ==
LOC: SED 11:32 → MPC 16:32
PROVIDERS: ADMIT Specialist; ATTEND Specialist
DX: I95.9 Hypotension, unspecified (principal); R00.1 Bradycardia, unspecified; R42 Dizziness and giddiness; I25.10 Atherosclerotic heart disease of native coronary artery without angina pectoris; E78.5 Hyperlipidemia, unspecified; I10 Essential (primary) hypertension; K21.9 Gastro-esophageal reflux disease without esophagitis; G47.30 Sleep apnea, unspecified; H93.19 Tinnitus, unspecified ear; G89.29 Other chronic pain; F41.9 Anxiety disorder, unspecified; F32.9 Major depressive disorder, single episode, unspecified; E11.9 Type 2 diabetes mellitus without complications; D64.9 Anemia, unspecified; Z95.1 Presence of aortocoronary bypass graft; Z79.82 Long term (current) use of aspirin; Z79.899 Other long term (current) drug therapy
CPT/HCPCS: 36415; 78452; 80048; 80053; 83735; 84443; 84484; 85025; 85610; 85730; 93005; 93017; 96360; 96361; 99291; 99292; A9502; C8929; G0378; J0280; J1644; J2785; J7030

== ENCOUNTER 2016-08-22 13:47 | Observation (INO) | payer OTHER ==
[~2016-08-22] VITALS: Ht 154.9 cm; Wt 90.3 kg
[2016-08-22] VITALS (8 sets, daily range): BP systolic 87–127; BP diastolic 51–77; PULSE 45–82; RESP 8–18; O2SAT 94–97
[~2016-08-22 13:47] MED LIST changes: +ATEN25TA PO; +LISI-567 PO; +METO10TA3 PO; -RANO10003 PO
[2016-08-22] MEDS ORDERED: 0.9% Sodium Chloride 1,000 ML IV ONE (14:10)
--- NOTE | 2016-08-22 14:19 | ED.REPORT ---
HPI-General Illness Date of Service Aug 22, 2016 ED Provider: Howie Maciel MD The patient is a 66 year old female with history of anxiety, depression, coronary artery disease, diabetes mellitus, hyperlipidemia, and hypertension, who presents to the emergency department complaining of hypotension that she noticed prior to arrival. She states her blood pressure monitor at home was unable to measure her blood pressure. This was a routine blood pressure check but during this time she felt drowsy and dizzy. She did not notice these symptoms yesterday but first noticed this when she woke up this morning. She also describes a "fuzzy and cloudy" feeling. She also reports shortness of breath and nausea. Her symptoms are worse with walking and change in position. Her symptoms are improved with lying flat. The patient was seen in this emergency department for similar symptoms 2 days ago and admitted to the hospital over night. She was taken off Ranexa and started on atenolol. She took this medication at 1000 am this morning. Her symptoms were worse after she took this medication. She denies diaphoresis, vomiting, diarrhea, fever, cough, dysuria, hematuria, hematochezia or hematemesis. Nursing Notes Stated Complaint: HIGH BP Chief Complaint: General Complaint Nursing Notes Reviewed: Yes (ADAPTIX, meds not reconciled - started on beta tyshawn yesteray and Renexa DCd) Allergies: Coded Allergies: Penicillins (Verified Allergy, Severe, RASH, 08/22/16) TAPE (Verified Allergy, Intermediate, rash, 08/22/16) Scheduled Aspirin (Aspirin) 81 Mg Tablet 81 MG PO DAILY Atenolol (Atenolol) 25 Mg Tablet 25 MG PO DAILY Atorvastatin Calcium (Atorvastatin Calcium) 80 Mg Tablet 80 MG PO DAILY Fluoxetine (Fluoxetine) 40 Mg Capsule 40 MG PO DAILY Gabapentin (Gabapentin) 300 Mg Capsule 600 MG PO BID Glyburide (Glyburide) 2.5 Mg Tablet 2.5 MG PO DAILY Isosorbide MN ER (Isosorbide MN ER) 120 Mg Tab.er.24h 30 MG PO DAILY Lisinopril (Lisinopril) 20 Mg Tablet 20 MG PO BID Magnesium Oxide (Magnesium Oxide) 400 Mg Tablet 400 MG PO BID Metformin (Metformin) 500 Mg Tablet 500 MG PO BID Multivitamin (Once Daily) 1 Each Tablet 1 EACH PO DAILY Pantoprazole DR (Pantoprazole DR) 40 Mg Tablet.dr 40 MG PO DAILY Pramipexole Dihydrochloride (Pramipexole Dihydrochloride) 0.25 Mg Tablet 0.5 MG PO TID Tizanidine (Tizanidine) 4 Mg Tablet 4 MG PO BID Scheduled PRN Lorazepam (Lorazepam) 0.5 Mg Tablet 0.5 MG PO TID PRN PRN For Anxiety Meclizine (Bonine) 25 Mg Tab.chew 25 MG PO TID PRN PRN For Dizziness Metoclopramide (Metoclopramide) 10 Mg Tablet 10 MG PO QID PRN PRN For Nausea Nitroglycerin SL (Nitroglycerin SL) 0.4 Mg Tab.subl 0.4 MG SL Q5MIN PRN PRN For Chest Pain Tacrolimus (Tacrolimus) 30 Gm Oint...g. 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 Just discharged yesterday 08/21/16 admission for near syncope, patient had Ranexa DC'd as symptoms were attributed to that medication, had a stress test that was positive, but an echo was negative with cardiology consultation indicating no emergent intervention indicated following, and recommend initiation of metoprolol which the patient started this morning Past Medical History Gastroporesis Anxiety Chronic pain Sleep apnea Tinnitis Reports: Coronary artery disease, Diabetes mellitus, Hyperlipidemia, Hypertension Reports: Depression Past Surgical History Triple bypass 2010 Cardiac Cath 2013 Laminectomy Bladder sling Family History Noncontributory Smoking History Never Smoker Social History Alcohol Use: Denies alcohol use Drug Use: Denies drug use Other Social History: Good social support, Local resident Ambulatory Status Independent Review of Systems +low blood pressure Full Review of Systems Constitutional: Reports: Fatigue, Denies: Fever Respiratory: Reports: Shortness of breath, Denies: Non-productive cough GI: Reports: Nausea, Denies: Diarrhea, Hematemesis, Hematochezia, Vomiting Female: Denies: Dysuria, Hematuria Skin: Denies Diaphoresis Neurologic: Reports: Dizziness, Lightheaded Complete sys rev & neg: except as marked. Physical Exam Vital Signs Vital Signs Date Time Temp Pulse Resp B/P Pulse Ox O2 Delivery O2 Flow Rate FiO2 08/22/16 15:49 45 11 102/66 97 Room Air 08/22/16 14:29 47 8 93/51 96 Room Air 08/22/16 13:51 36.4 82 16 87/63 94 Room Air Initial VS: Reviewed, Vital signs abnormal Head / Eyes: Atraumatic, Normocephalic, PERRL ENT: Mucous membranes moist, Conjunctiva normal, No scleral icterus Neck: Supple, Non-tender, Full range of motion Respiratory: Breath sounds normal, Clear to auscultation, No respiratory distress Abdomen / GI: Soft, Non-tender, No guarding, No rebound, No distention Lymphatic: No lymphadenopathy Extremities: Vascular intact, Neuro intact, No swelling, No tenderness Skin: Warm, Dry, No cyanosis Neurologic: Alert, Oriented, Nonfocal Psychiatric: Mood/affect normal, Behavior normal, Normal thought content General/Constitutional: Awake, Alert, No acute distress Appearance / Presentation: Positive: Obese, Negative: Pale Cardiovascular: Regular rhythm, Heart sounds NL, No murmurs, No rubs Heart Rate / Rhythm: Positive: Bradycardia Hypotensive Lower Extremity / Pelvis / MS: Neurologic intact, Vascular intact, No edema Interpretation & Diagnostics Lab Results Interpretation Result Diagram: 08/22/16 1420 08/22/16 1420 Test 08/22/16 14:20 White Blood Count 10.1th/mm3 (3.8-10.1) Red Blood Count 3.81mil/mm3 (3.90-5.20) Hemoglobin 11.6g/dL (12.0-15.6) Hematocrit 35.4% (35.0-46.0) Mean Corpuscular Volume 92.9fL (81-100) Mean Corpuscular Hemoglobin 30.4pg (27.0-35.0) Mean Corpuscular Hemoglobin Concent 32.8% (32.0-37.0) Red Cell Distribution Width 12.8% (12.3-15.4) Platelet Count 272bil/L (150-400) Neutrophils (%) (Auto) 55.6% (40-74) Lymphocytes (%) (Auto) 34.3% (14-46) Monocytes (%) (Auto) 7.2% (4-12) Eosinophils (%) (Auto) 2.2% (0-5) Basophils (%) (Auto) 0.3% (0-3) Sodium Level 135mEq/L (134-144) Potassium Level 5.0mEq/L (3.5-5.2) Chloride Level 97mEq/L (97-108) Carbon Dioxide Level 24mmol/L (18-29) Blood Urea Nitrogen 16mg/dL (8-27) Creatinine 1.35mg/dL (0.57-1.00) Estimat Glomerular Filtration Rate 57mL/min (>59) Glucose Level 107mg/dL (60-99) Lactic Acid Level 2.4mmol/L (0.4-2.0) Calcium Level 9.3mg/dL (8.5-10.1) Total Bilirubin 0.3mg/dL (0.0-1.2) Aspartate Amino Transf (AST/SGOT) 15U/L (0-50) Alanine Aminotransferase (ALT/SGPT) 12U/L (0-32) Alkaline Phosphatase 75U/L (25-165) Troponin T < 0.010ug/L (0.0-0.011) Total Protein 6.8g/dL (6.4-8.4) Albumin 3.9g/dL (3.4-5.0) Lab Results Interpretation: CBC normal CMP trace renal insufficiency Lactic acid marginally, nonspecifically elevated ECG Interpretation ECG Interpretation: Sinus bradycardia T wave inversions anteriorly Incomplete RBBB Unchanged from EKG taken on 08-20-2016 Time: 14:11 Interpreted by: ED physician Re-Eval/Medical Decision Med Decision/Clinical Course This is a 66-year-old female just discharged from the hospital yesterday following an admission for spells of lightheadedness. After extensive evaluation it was thought that the patient's symptoms may be secondary to Ranexa , index was discontinued and patient started on metoprolol. Today the patient started feeling lightheaded again still very positional, still feels "cloudy headed", but became concerned when she attempted to measure her blood pressure and could not measure a blood pressure because it was too low. She therefore came into the emergency department. Department the patient's found to be significantly bradycardic with a sinus bradycardia in the 40s, and hypotensive with the blood pressure of 85 systolic. She was not orthostatic and not bradycardic or hypotensive during her recent admission. His findings are strongly suspicious of Effexor the beta tyshawn that it just been initiated. EKG demonstrates bradycardia but no other findings. Blood work reveals trace lactic acidosis, and this nonspecific-the patient has no fever or infectious findings or symptoms components of presentation to suggest sepsis. The patient was observed, and with fluids the blood pressure normalized, but the patient remained safely bradycardic, and remains symptomatic. Given her ongoing symptomatic bradycardia, despite discharged yesterday, patient is requiring readmission and this is appropriate. Case was discussed with cardiology determine if this would change her management recommendations given there plans to DC Ranexa, start metoprolol, and outpatient follow-up with a recent abnormal stress test. Cardiology indicates that simply discontinue metoprolol, and continue the current plans are outpatient follow-up once patient 's symptoms resolved. This is been discussed with the hospitalist.. Source of Hx: Old records, Family Time of Eval: 15:00 Re-Evaluation/Progress Note: Rechecked the patient. Her symptoms are unchanged. Consultation #1: Referral / Consult Name: Brandon Humphries MD Consulted With: Cardiology Call Returned at: 15:10 Cosmetologist: Will see patient, Agrees with eval, Agrees with plan, Accepts admit Consultation #2: Referral / Consult Name: Gabi Soriano MD Consulted With: Hospitalist Call Returned at: 15:52 Cosmetologist: Will see patient, Agrees with eval, Agrees with plan, Accepts admit Counseled Regarding: Diagnosis, Lab results, Need for admission Discharge & Departure Primary Impression: Hypotension Hypotension type: unspecified hypotension type Qualified Code: I95.9 - Hypotension, unspecified Additional Impressions: Symptomatic bradycardia Adverse effects of medication Encounter type: initial encounter Qualified Code: T88.7XXA - Unspecified adverse effect of drug or medicament, initial encounter Disposition: ADMITTED TO HOSPITAL Discharge Condition All VS Reviewed: Yes Condition: Stable Referrals: Yehuda Garcia MD (PCP) Scribe Attestation Portions of this note were transcribed by Teresita Michaels. I, Dr. Maciel personally performed the history, physical exam and medical decision-making; I reviewed and confirmed the accuracy of the information in the transcribed note. Signed by: Vlad Mason, 08/22/2016 at 1600. copies to: Yehuda Garcia MD, Matthew F MD Aug 22, 2016 14:19 Teresita Michaels Aug 22, 2016 14:22
[2016-08-22 14:36] LABS: BASOPHILS % (AUTO) 0.3 % (0-3); EOSINOPHILS % (AUTO) 2.2 % (0-5); MONOCYTES % (AUTO) 7.2 % (4-12); Mean Corpuscular Hemoglobin 30.4 pg (27.0-35.0); Mean Corpuscular Volume 92.9 fL (81-100); NEUTROPHILS % (AUTO) 55.6 % (40-74); Platelet Count 272 bil/L (150-400)
[2016-08-22 15:00] LABS: TROPONIN T < 0.010 ug/L (0.0-0.011)
[2016-08-22] MEDS ORDERED: fentaNYL-PF 50 mCg/mL 2 mL Inj IVPUSH ONE (15:20)
[2016-08-22] MEDS ORDERED: Atropine 1 mg/10 mL (Code) Syringe IVPUSH PRN (16:35)
[2016-08-22] MEDS ORDERED: Ondansetron 2 mg/mL 2 mL Inj IVPUSH PRN (16:35)
[2016-08-22 17:18] LABS: APPEARANCE,URINE CLEAR (CLEAR,HAZY); COLOR,URINE YELLOW (YELLOW); OCCULT BLOOD,URINE NEGATIVE (NEGATIVE); PH,URINE 5.5 (5.0-8.0); UROBILINOGEN,URINE NORMAL (NORMAL)
[2016-08-22] MEDS ORDERED: LORazepam 0.5 mg Tablet PO PRN (17:55)
--- NOTE | 2016-08-22 17:55 | PCM.HPMED ---
Subjective Date of Service Aug 22, 2016 Primary Provider: Admitting Physician: Primary Care Physician: Yehuda Garcia MD Attending Physician: Chief Complaint: Dizzy HISTORY was OBTAINED FROM PATIENT and family / [facility] NOTES History of present illness 66-year-old female, with low blood pressure at home unable to measure any pressure at home. Associated dizziness and drowsiness shortness of breath nausea worse with activity and atenolol. Last admitted 2 days ago. At that time Ranexa discontinued metoprolol started No diarrhea no vomiting. She complains of dry mouth now. no URI symptoms no UTI symptoms no rash In the ER, heart rate 40s, 87/63 94% room air, 1 L normal saline >> improved BP , 86.36 kg she is talking without difficulty at heart rate in the 40s. 08/21/16 admission presyncope attributed to ranexa (prior to admit - medications included carvedilol/high-dose isosorbide mononitrate,amlodipine Ranexa with increasing doses to 1000 mg b.i.d. over last couple of years) stress test positive, but echo negative with cardiology recommending betablocker , normal TSH. w/ recs to f/u w/ PCP and Charu on discharge Review of Systems - none of the following - F/C/sick contact / wt change/ GREER / lightheaded / dizziness / sob / cough / cp / acid reflux / n/v/diarrhea / bleeding/bruising / leg swelling / change in voiding / yeast infections / rash ambulates FAMILY HX no cardiac disease SOCIAL HX never smoker MEDICATIONS Scheduled Aspirin (Aspirin) 81 Mg Tablet 81 MG PO DAILY Atenolol (Atenolol) 25 Mg Tablet 25 MG PO DAILY Atorvastatin Calcium (Atorvastatin Calcium) 80 Mg Tablet 80 MG PO DAILY Fluoxetine (Fluoxetine) 40 Mg Capsule 40 MG PO DAILY Gabapentin (Gabapentin) 300 Mg Capsule 600 MG PO BID Glyburide (Glyburide) 2.5 Mg Tablet 2.5 MG PO DAILY Isosorbide MN ER (Isosorbide MN ER) 120 Mg Tab.er.24h 30 MG PO DAILY Lisinopril (Lisinopril) 20 Mg Tablet 20 MG PO BID Magnesium Oxide (Magnesium Oxide) 400 Mg Tablet 400 MG PO BID Metformin (Metformin) 500 Mg Tablet 500 MG PO BID Multivitamin (Once Daily) 1 Each Tablet 1 EACH PO DAILY Pantoprazole DR (Pantoprazole DR) 40 Mg Tablet.dr 40 MG PO DAILY Pramipexole Dihydrochloride (Pramipexole Dihydrochloride) 0.25 Mg Tablet 0.5 MG PO TID Tizanidine (Tizanidine) 4 Mg Tablet 4 MG PO BID Scheduled PRN Lorazepam (Lorazepam) 0.5 Mg Tablet 0.5 MG PO TID PRN PRN For Anxiety Meclizine (Bonine) 25 Mg Tab.chew 25 MG PO TID PRN PRN For Dizziness Metoclopramide (Metoclopramide) 10 Mg Tablet 10 MG PO QID PRN PRN For Nausea Nitroglycerin SL (Nitroglycerin SL) 0.4 Mg Tab.subl 0.4 MG SL Q5MIN PRN PRN For Chest Pain Tacrolimus (Tacrolimus) 30 Gm Oint...g. 1 APPLIC TOP BID PRN PRN rash oxyCODONE (oxyCODONE) 5 Mg Tablet 5 MG PO q6 hours PRN PRN For Pain Past Medical/Surgical HX anxiety, depression, coronary artery disease, [id number] 2009 hyperlipidemia, and hypertensionCardiac Cath 2012 - patent bypass grafts with moderate diabetic tubular atherosclerosis in her distal vessels particularly her LAD. GERD Gastroporesis diabetes mellitus, Chronic pain Sleep apnea Tinnitis Laminectomy Bladder sling Allergies Coded Allergies: Penicillins (Verified Allergy, Severe, RASH, 08/22/16) TAPE (Verified Allergy, Intermediate, rash, 08/22/16) PMH Social History Hx Alcohol Use: No Hx Substance Use: No Hx Tobacco Use: No Smoking Status: Never Smoker Exam Vital Signs Vital Sign - Last Date Time Temp Pulse Resp B/P Pulse Ox O2 Delivery O2 Flow Rate FiO2 08/22/16 14:29 47 8 93/51 96 Room Air 08/22/16 13:51 36.4 Lab and Diagnostics Labs Exam on admission room air NAD A and O x 3 mood affect WNL NC/AT no icterus no injected eyes EOMI PERRL /no pharyngeal lesions/ no oral lesions / hearing intact Supple neck CTAB equal chest rise / no accessory muscle use / speaks in full sentences / no rrw RRR S1 S2 / no mrg / 2+ radial pulses Soft nt nd + BS no hepatosplenomegaly No edema no cyanosis no ecchymosis of lower extremities No rash / no jaundice BRIAN EKG SR 47 T flipped on inferior leads - unchanged from prior inferior leads on prior EKG Trop normal at 2:20 PM lactic acid 2.4 UA neg nitrite/leukocyte esterase/yeast LFT normal Imaging no CXR, no symptoms 08/21/16 Echocardiogram Report Interpretation Summary The left ventricle is normal in size, wall thickness, and systolic function without any focal wall motion abnormalities. The ejection fraction is estimated to be 60-65%. Assessment of diastolic parameters indicates a relaxation abnormality of the left ventricle, consistent with normal filling pressures. The right ventricle is at the upper limits of normal in size. A moderator band is seen in the right ventricle. Right ventricular systolic function is at the lower limits of normal. The right ventricular systolic pressure is estimated at 36 mmHg assuming a right atrial pressure of 8 mm Hg. The left atrium is moderately dilated. The superior aspect of the right atrium appears to be compressed by an extrinsic structure. Right atrial size is normal. The atrial septum is aneurysmal. There is no Doppler evidence for an interatrial shunt. There is no significant valvular heart disease. The aortic root is normal size. Date of Service: 08/21/16 1720 PROCEDURE: 1 DAY PHARMACOLOGICAL STRESS TEST Rest and pharmacological stress myocardial perfusion SPECT with gated imaging and ejection fraction IMPRESSION: This is abnormal myocardial perfusion study. Overall there appears to be a small to moderate-sized perfusion defect with mild to moderate intensity along the basal and mid lateral wall that is consistent with reversible ischemia. In comparison to the previous stress test in 06/2013, this was not present. Overall the is normal and there is no evidence of LV wall motion. Clinical correlation is recommended. Result Diagram: 08/22/16 14208/22/16 142 Assessment & Plan Active issues and reason for admission Recurrent hypotension, previously thought to have been caused by Ranexa,now due to new metroprolol -- Pending Orthostatics -- Pending cortisol / -- UA neg, no signs of infection, consider CXR if declines -- Normal TSH with unremarkable echo previously -- Hold met[facility]polol 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 GERD Gastroporesis diabetes mellitus, Chronic pain Sleep apnea Tinnitis Laminectomy Bladder sling Diet cardiac/DM/SSI DVT prophylaxis scd ambulate Code full Disposition obs Assessment and plan were discussed with patient family. Gabi Soriano MD Aug 22, 2016 15:30
[2016-08-22] MEDS ORDERED: Glucose 40% Oral Gel 15 Gm Tube PO PRN (18:00)
--- NOTE | 2016-08-22 18:42 | NUR ---
Admit Pt admitted to room 3005 at approx 1800. Report received from Nasreen Cabrera RN.Pt alert and oriented. Able to ambulate from cart to bed independently. Family at bedside. VS, weight obtained. Pt denies pain at this time. Orientation video played for pt.
--- NOTE | 2016-08-22 20:23 | NUR ---
Admission Admission assessment completed. Report given to HANNAH Najera. Pt has no current needs. at bedside. Aware to use call light prior to getting up OOB.
[2016-08-22] MEDS: Insulin LISPRO 300 Unit/3 mL Inj SUBQ SCH (21:00)
[2016-08-23] VITALS (9 sets, daily range): BP systolic 109–134; BP diastolic 65–79; PULSE 52–65; RESP 16–18; O2SAT 97–99
--- NOTE | 2016-08-23 06:21 | NUR ---
Resp/pain Pt did not bring own CPAP, placed on 2L O2 and pulse oxy over night, VSS, Oxycodone given for 6/10 back pain x1, effective. Pt had otherwise uneventful night.
[2016-08-23 06:26] LABS: BASOPHILS % (AUTO) 0.3 % (0-3); EOSINOPHILS % (AUTO) 2.8 % (0-5); MONOCYTES % (AUTO) 6.3 % (4-12); Mean Corpuscular Hemoglobin 30.3 pg (27.0-35.0); Mean Corpuscular Volume 93.7 fL (81-100); NEUTROPHILS % (AUTO) 50.1 % (40-74); Platelet Count 247 bil/L (150-400)
[2016-08-23 07:23] LABS: TROPONIN T 0.01 ug/L (0.0-0.011)
[2016-08-23] MEDS: Insulin LISPRO 300 Unit/3 mL Inj SUBQ SCH ×4 (07:51→22:00)
[2016-08-23] MEDS: Pantoprazole 40 mg ER24 Tablet PO SCH (07:56)
[2016-08-23] MEDS: Isosorbide Mononitrate 30 mg ER24 Tablet PO SCH (07:56)
--- NOTE | 2016-08-23 08:49 | PCM.PNMED ---
Subjective Date of Service Aug 23, 2016 Subjective Pt feeling better this morning. No recurrent events of palpitations or syncopal symptoms. NO chest pain. NO light headedness. But she doesn't quiet feel herself , still a but weaker than baseline. NO other complaints at this time. Exam Vital Signs Vital Sign - Last Date Time Temp Pulse Resp B/P Pulse Ox O2 Delivery O2 Flow Rate FiO2 08/23/16 06:52 61 08/23/16 05:30 36.8 16 131/74 99 Nasal Cannula 2.00 Intake and Output 08/22/16 08/22/16 08/23/16 Cumulative From/Thru 14:59 22:59 06:59 08/22/16 13:51 - 08/23/16 05:34 Intake Total 1000 ml 345 ml 600 ml 1945 ml Output Total 1600 ml 1600 ml Balance 1000 ml 345 ml -1000 ml 345 ml Intake Oral 600 ml 600 ml IV Total 1000 ml 345 ml 1345 ml Output Urine Total 1600 ml 1600 ml General: Alert, Oriented X3, Cooperative, No Acute Distress Eyes: PERRLA Chest & Lungs: Clear to auscultation & percussion Cardiovascular: Regular Rate/Rhythm Neurological: Grossly Neurologically Intact IVs and Medications Medications Reviewed: Medications were reviewed in detail Lab and Diagnostics Result Diagram: 08/23/1637 08/23/1637 Assessment & Plan Active issues and reason for admission Recurrent hypotension, previously thought to have been caused by Ranexa,now due to new metoprolol -- Pt S/P Atropine for denys event yesterday evening. Since then rate is stable with Atenolol held (in addition to previously held Ranexa) -- Normal TSH with unremarkable echo previously -- Continue to monitor on telemetry. - Dr Humphries reviewed case, will arrange for out patient extended cardiac monitoring IF rate and patient condition stable over night off beta tyshawn. Mild normocytic anemia Elevated creatinine 1.35 -- Creatinine range 0.64-1.57 Chronic issues known prior to admission, present on admission anxiety, depression, coronary artery disease, [id number] 2009 hyperlipidemia, and hypertensionCardiac Cath 2012 - patent bypass grafts with moderate diabetic tubular atherosclerosis in her distal vessels particularly her LAD. GERD Gastroporesis diabetes mellitus, Chronic pain Sleep apnea Tinnitis Laminectomy Bladder sling Diet cardiac/DM/SSI DVT prophylaxis scd ambulate Code full Disposition obs, anticipate DC in AM Assessment and plan were discussed with patient family. Pain Evaluation: Adequate Pain Control VTE Mechanical Devices: Intermittant Pneumatic CD Resuscitation Status: CPR: Attempt Resuscitation Time spent 30 minutes Pieter Mcgrath DO Aug 23, 2016 08:49
--- NOTE | 2016-08-23 10:55 | NUR ---
Social Work: Screening Data: Pt is a 66 y/o female admitted for hypotensive bradycardia. Pt's PCP is Dr Garcia, pt's insurance is [employer]. BARREL RIFLER met with pt to discuss AD and DPOA, EMR has POLST on file. Pt states she does not have AD or DPOA and accepted information provided by BARREL RIFLER. Pt states she has been up and independent in the room. No d/c planning needs anticipated at this time. BARREL RIFLER will continue to follow if needs arise. Assessment: Pt who is independent at baseline. Plan: Pt will d/c home via POV when medically stable. No d/c planning needs anticipated at this time. BARREL RIFLER will continue to follow if needs arise. MORENITA Plunkett
--- NOTE | 2016-08-23 15:00 | NUR ---
spiritual care: pt request Visited with pt and talked about ilya, family and health. Pt has a strong support system. Offered a prayer before leaving the room. Spiritual care will continue to follow as needed.
[2016-08-24] VITALS (7 sets, daily range): BP systolic 116–134; BP diastolic 61–79; PULSE 55–74; RESP 16–18; O2SAT 96–98
--- NOTE | 2016-08-24 01:15 | NUR ---
Transfer to [facility] Patient moved via wheelchair with all belongings and patient's daughter who is accompanying. report given and patient transported by Mario Chavez. Pt ambulated to bed without dizziness.
--- NOTE | 2016-08-24 01:33 | NUR ---
Transfer to [facility] @01:15 to make room for higher acuity admit. Patient moved via wheelchair with all belongings and patient's daughter who is accompanying.
--- NOTE | 2016-08-24 06:30 | NUR ---
Dizziness Pt complained of dizziness when they got up to use the restroom.
[2016-08-24] MEDS: Isosorbide Mononitrate 30 mg ER24 Tablet PO SCH (07:30)
[2016-08-24] MEDS: Pantoprazole 40 mg ER24 Tablet PO SCH (08:38)
[2016-08-24] MEDS: Insulin LISPRO 300 Unit/3 mL Inj SUBQ SCH ×2 (08:44→12:00)
--- NOTE | 2016-08-24 11:22 | PCM.DIMED ---
Discharge Instructions Date of Service Aug 24, 2016 Dates of Hospitalization Aug 22, 2016 at 16:39 Discharge Diagnosis Discharge Diagnosis Recurrent hypotension, Bradycardia with associated lightheeadness/presyncopy: improved. Mild normocytic anemia Chronic renal insufficiency/failure; stable on admission. Diet Heart Healthy Activity Limited until seen by PCP Call your provider Shortness of breath, Chest pain Patient Instructions Follow-up plan Follow up immediately following discharge at the office of Dr Humphries ( associate of Dr Parker, Ring Cutter Lathe Operator) , for placement of long-term heart monitor to evaluate cardiac function with current medication adjustments. F/U in 1 week with PCP for BP/Pulse check. F/U in 3-4 weeks with human resources leader to review. Follow-up Provider: Yehuda Garcia MD Follow-up with PCP in: 1 week Pieter Mcgrath DO Aug 24, 2016 11:22
--- NOTE | 2016-08-24 11:30 | PCM.DC.MED ---
Discharge Summary Date of Service Aug 24, 2016 Dates of Hospitalization Date of Hospital Admission Aug 22, 2016 at 16:39 Date of Discharge: Aug 24, 2016 Providers: Admitting Physician: Gabi Soriano MD Primary Care Physician: Yehuda Garcia MD Attending Physician: Gabi Soriano MD Diagnosis at Time of Discharge Diagnosis at Time of Discharge Recurrent hypotension, Bradycardia with associated lightheeadness/presyncopy: improved. Mild normocytic anemia Chronic renal insufficiency/failure; stable on admission. Brief History As per HPI by Dr. Soriano, "66-year-old female, with low blood pressure at home unable to measure any pressure at home. Associated dizziness and drowsiness shortness of breath nausea worse with activity and atenolol. Last admitted 2 days ago. At that time Ranexa discontinued metoprolol started No diarrhea no vomiting. She complains of dry mouth now. no URI symptoms no UTI symptoms no rash In the ER, heart rate 40s, 87/63 94% room air, 1 L normal saline >> improved BP , 86.36 kg she is talking without difficulty at heart rate in the 40s. 08/21/16 admission presyncope attributed to ranexa (prior to admit - medications included carvedilol/high-dose isosorbide mononitrate,amlodipine Ranexa with increasing doses to 1000 mg b.i.d. over last couple of years) stress test positive, but echo negative with cardiology recommending betablocker , normal TSH. w/ recs to f/u w/ PCP and Charu on discharge" Hospital Course # Recurrent hypotension, previously thought to have been caused by Ranexa,now due to new metoprolol : Case discussed with Dr. Humphries, joint maker machine cotton header, and associate of patient's out patient joint maker machine Dr Parker. He felt bradycardia and resultant hypotension likely a result of beta-tyshawn, and proposed holding this medication and continued monitoring. Overnight pt's pulse was at times in 50's but stable , and was blood pressure, with no recurrent events of dizziness/lightheadedness. As per Dr Humphries's recommendations, She was discharged home with Metoprolol discontinued. Plan to FU immediately following discharge to Dr Humphries's office , to have [employer] continuous churn director of home health services placed for further evaluation prior to FU visit. NO further interventions made at discharge. Imdur continued at this time , as BP appeared stable off beta-tyshawn, this may need to be reconsidered IF hypotension reoccurs. # Mild normocytic anemia; stable on admission # Elevated creatinine 1.35 -- Creatinine range 0.64-1.57 - Stable through hospital stay. Exam Vital Signs (Last) Date Time Temp Pulse Resp B/P Pulse Ox O2 Delivery O2 Flow Rate FiO2 08/24/16 08:00 64 08/24/16 07:47 36.8 16 116/75 98 08/24/16 05:09 Nasal Cannula 1.00 Test 08/22/16 14:20 08/22/16 17:00 08/23/16 05:37 Lactic Acid Level 2.4mmol/L (0.4-2.0) Urine Color Yellow (YELLOW) Urine Appearance Clear (CLEAR,HAZY) Urine pH 5.5 (5.0-8.0) Urine Specific [place] 1.020 (1.003-1.035) Urine Protein Negativemg/dL (NEG,TRACE) Urine Glucose (UA) Negativemg/dL (NEGATIVE) Urine Ketones Negativemg/dL (NEGATIVE) Urine Occult Blood Negative (NEGATIVE) Urine Nitrite Negative (NEGATIVE) Urine Bilirubin Negative (NEGATIVE) Urine Urobilinogen Normalmg/dL (NORMAL) Urine Leukocyte Esterase Negative (NEGATIVE) Urine RBC 0-2/hpf (0-2) Urine WBC 0-5/hpf (0-5) Urine Epithelial Cells Few/hpf (NONE-MOD) Urine Crystals None seen (NONE SEEN) Urine Bacteria Few/hpf (NONE-FEW) Urine Hyaline Casts None/lpf (NONE) Urine Granular Casts None seen (NONE SEEN) Urine Waxy Casts None seen (NONE SEEN) Urine Red Blood Cell Casts None seen (NONE SEEN) Urine White Blood Cell Casts None seen (NONE SEEN) Urine Mucus Present (None Seen) Urine Trichomonas None seen (NONE SEEN) Urine Yeast None (NONE SEEN) Urinalysis Comment None Urine Culture Reflexed Not indicated White Blood Count 8.7th/mm3 (3.8-10.1) Red Blood Count 3.79mil/mm3 (3.90-5.20) Hemoglobin 11.5g/dL (12.0-15.6) Hematocrit 35.5% (35.0-46.0) Mean Corpuscular Volume 93.7fL (81-100) Mean Corpuscular Hemoglobin 30.3pg (27.0-35.0) Mean Corpuscular Hemoglobin Concent 32.4% (32.0-37.0) Red Cell Distribution Width 12.9% (12.3-15.4) Platelet Count 247bil/L (150-400) Neutrophils (%) (Auto) 50.1% (40-74) Lymphocytes (%) (Auto) 40.2% (14-46) Monocytes (%) (Auto) 6.3% (4-12) Eosinophils (%) (Auto) 2.8% (0-5) Basophils (%) (Auto) 0.3% (0-3) Sodium Level 140mEq/L (134-144) Potassium Level 4.5mEq/L (3.5-5.2) Chloride Level 102mEq/L (97-108) Carbon Dioxide Level 26mmol/L (18-29) Blood Urea Nitrogen 12mg/dL (8-27) Creatinine 0.92mg/dL (0.57-1.00) Estimat Glomerular Filtration Rate 88mL/min (>59) Glucose Level 133mg/dL (60-99) Calcium Level 9.2mg/dL (8.5-10.1) Total Bilirubin 0.3mg/dL (0.0-1.2) Aspartate Amino Transf (AST/SGOT) 14U/L (0-50) Alanine Aminotransferase (ALT/SGPT) 13U/L (0-32) Alkaline Phosphatase 72U/L (25-165) Troponin T 0.010ug/L (0.0-0.011) Total Protein 6.1g/dL (6.4-8.4) Albumin 3.8g/dL (3.4-5.0) Cortisol 6.9ug/dL (.) Discharge Medications Discharge Medications Aspirin (Aspirin) 81 Mg Tablet 81 MG PO DAILY (Reported) Atorvastatin Calcium (Atorvastatin Calcium) 80 Mg Tablet 80 MG PO DAILY ( Reported) Fluoxetine (Fluoxetine) 40 Mg Capsule 40 MG PO DAILY (Reported) Gabapentin (Gabapentin) 300 Mg Capsule 600 MG PO BID (Reported) Glyburide (Glyburide) 2.5 Mg Tablet 2.5 MG PO DAILY (Reported) Isosorbide MN ER (Isosorbide MN ER) 120 Mg Tab.er.24h 30 MG PO DAILY (Reported) Lisinopril (Lisinopril) 20 Mg Tablet 20 MG PO BID (Reported) Magnesium Oxide (Magnesium Oxide) 400 Mg Tablet 400 MG PO BID (Reported) Metformin (Metformin) 500 Mg Tablet 500 MG PO BID (Reported) Multivitamin (Once Daily) 1 Each Tablet 1 EACH PO DAILY (Reported) Pantoprazole DR (Pantoprazole DR) 40 Mg Tablet.dr 40 MG PO DAILY (Reported) Pramipexole Dihydrochloride (Pramipexole Dihydrochloride) 0.25 Mg Tablet 0.5 MG PO TID (Reported) Tizanidine (Tizanidine) 4 Mg Tablet 4 MG PO BID (Reported) As needed Lorazepam (Lorazepam) 0.5 Mg Tablet 0.5 MG PO TID PRN PRN For Anxiety (Reported ) Meclizine (Bonine) 25 Mg Tab.chew 25 MG PO TID PRN PRN For Dizziness (Reported) Metoclopramide (Metoclopramide) 10 Mg Tablet 10 MG PO QID PRN PRN For Nausea ( Reported) Nitroglycerin SL (Nitroglycerin SL) 0.4 Mg Tab.subl 0.4 MG SL Q5MIN PRN PRN For Chest Pain (Reported) Tacrolimus (Tacrolimus) 30 Gm Oint...g. 1 APPLIC TOP BID PRN PRN rash (Reported ) oxyCODONE (oxyCODONE) 5 Mg Tablet 5 MG PO q6 hours PRN PRN For Pain (Reported) Followup Plan Follow-up plan Follow up immediately following discharge at the office of Dr Humphries ( associate of Dr Parker, [employer]) , for placement of long-term heart monitor to evaluate cardiac function with current medication adjustments. F/U in 1 week with PCP for BP/Pulse check. F/U in 3-4 weeks with joint maker machine to review. Discharge Diet: Heart Healthy Discharge Activity: Limited until seen by PCP Follow-up Provider: Yehuda Garcia MD Follow-up with PCP in: 1 week Time spent 45 minutes copies to: Yehuda Garcia MD, Benjamin P DO Aug 24, 2016 11:30
--- NOTE | 2016-08-24 14:23 | NUR ---
Discharge Pt discharged at 1422. She was given discharge instructions and instructions for follow up care. She confirmed understanding of these instructions. She was not given any prescriptions to leave with. She was instructed to follow up with the business risk analyst at 1500 today (across the street from the hospital). Her daughter was present at the bedside for discharge instructions. She was brought to the main entrance of the hospital by wheelchair by unit staff. Her daughter picked her up in her car and would be taking her home after her business risk analyst appointment.
--- NOTE | 2016-08-24 16:19 | NUR ---
Social Work Note Readiness for Discharge: D/A: The Pt is a 66 y/o female that was admitted under observation status on 08/22/16 for hypotensive, bradycardia. The Pt is ready for discharge today. requested follow up with MD Brandon Humphries's office re: certified surgical technician heart monitor set up arrangements for after discharge. SW confirmed, monitor will be available at 3pm. Pt informed by nursing regarding this arrangement. P: The Pt is ready for D/C home via POV today. Pt to follow with MD Brandon Humphries's office regarding a [facility] heart monitor set up appointment scheduled for 3pm. No other needs identified. MORENITA Montero [employer] Consultant IGGY Lebron
== END 2016-08-24 14:16 | disposition home or self-care (01) ==
LOC: SED 13:47 → MPC 16:39 → MOC 08-24 01:15
PROVIDERS: ADMIT Urology; ATTEND Urology
DX: I95.2 Hypotension due to drugs (principal); R55 Syncope and collapse; R00.1 Bradycardia, unspecified; T44.7X5A Adverse effect of beta-adrenoreceptor antagonists, initial encounter; D64.9 Anemia, unspecified; I12.9 Hypertensive chronic kidney disease with stage 1 through stage 4 chronic kidney disease, or unspecified chronic kidney disease; N18.9 Chronic kidney disease, unspecified; F32.9 Major depressive disorder, single episode, unspecified; F41.9 Anxiety disorder, unspecified; I25.10 Atherosclerotic heart disease of native coronary artery without angina pectoris; E11.51 Type 2 diabetes mellitus with diabetic peripheral angiopathy without gangrene; E11.43 Type 2 diabetes mellitus with diabetic autonomic (poly)neuropathy; K31.84 Gastroparesis; G47.30 Sleep apnea, unspecified; K21.9 Gastro-esophageal reflux disease without esophagitis; E78.5 Hyperlipidemia, unspecified; Z95.1 Presence of aortocoronary bypass graft; Z79.84 Long term (current) use of oral hypoglycemic drugs
CPT/HCPCS: 36415; 80053; 81000; 82533; 83605; 84484; 85025; 93005; 96361; 96374; 99285; J0461; J1815; J3010; J7030

== ENCOUNTER 2016-08-29 12:01 | Observation (INO) | payer OTHER ==
[2016-08-29] VITALS (7 sets, daily range): BP systolic 59–146; BP diastolic 20–81; PULSE 41–57; RESP 15–20; O2SAT 97–100
[~2016-08-29] VITALS: Ht 154.9 cm; Wt 92.9 kg
[~2016-08-29 12:01] MED LIST changes: -ATEN25TA PO
--- NOTE | 2016-08-29 12:23 | ED.REPORT ---
HPI-General Illness Date of Service Aug 29, 2016 ED Provider: Edward Francis MD The patient is a 65 year old female with history of diabetes mellitus type II on Metformin, hypertension, coronary artery disease s/p CABG, hyperlipidemia, gastroparesis, GERD, fibromyalgia, anxiety, and depression, who sent to the emergency department from the cardiology office for bradycardia with a heart rate in 40s. Her heart rate is usually in the 60s-80s. Today she has felt lightheaded and like she was going to pass out. Her blood pressure was 63/42 at the clinic. The patient does not have any chest pain, shortness of breath, fever , chills, nausea or vomiting. She has been admitted several times for similar symptoms over the last several months. She was admitted here from 08/22-08/24 for hypotension. She was taken off of metoprolol and discharged home with close cardiology followup. She was also admitted at [place] from 08/27-08/28 for postural hypotension and presyncope as well as bradycardia, type II diabetes, coronary artery disease, and stage III chronic kidney disease. Cortisol testing was normal there. Amlodipine and tizanidine were discontinued but she was continued on lisinopril, isosorbide, atorvastatin, aspirin, gabapentin, fluoxetine, glyburide, lorazepam, meclizine, metoclopramide, oxycodone, pantoprazole, and pramipexole. Her warp hauler is Dr. Parker. Nursing Notes Stated Complaint: POSSIBLE LOW BLOOD PRESSURE Chief Complaint: Dysrhythmia/Cardiac Nursing Notes Reviewed: Yes Allergies: Coded Allergies: Penicillins (Verified Allergy, Severe, RASH, 08/22/16) TAPE (Verified Allergy, Intermediate, rash, 08/22/16) Scheduled Aspirin (Aspirin) 81 Mg Tablet 81 MG PO DAILY Atorvastatin Calcium (Atorvastatin Calcium) 80 Mg Tablet 80 MG PO DAILY Fluoxetine (Fluoxetine) 40 Mg Capsule 40 MG PO DAILY Gabapentin (Gabapentin) 300 Mg Capsule 600 MG PO BID Glyburide (Glyburide) 2.5 Mg Tablet 2.5 MG PO DAILY Isosorbide MN ER (Isosorbide MN ER) 120 Mg Tab.er.24h 30 MG PO DAILY Lisinopril (Lisinopril) 20 Mg Tablet 20 MG PO BID Magnesium Oxide (Magnesium Oxide) 400 Mg Tablet 400 MG PO BID Metformin (Metformin) 500 Mg Tablet 500 MG PO BID Multivitamin (Once Daily) 1 Each Tablet 1 EACH PO DAILY Pantoprazole DR (Pantoprazole DR) 40 Mg Tablet.dr 40 MG PO BID Pramipexole Dihydrochloride (Pramipexole Dihydrochloride) 0.25 Mg Tablet 0.5 MG PO TID Scheduled PRN ([Excedrin Tension]) 500mg/65mg 1 EACH PO TID PRN PRN For Headache Lorazepam (Lorazepam) 0.5 Mg Tablet 0.5 MG PO TID PRN PRN For Anxiety Meclizine (Bonine) 25 Mg Tab.chew 25 MG PO TID PRN PRN For Dizziness Metoclopramide (Metoclopramide) 10 Mg Tablet 10 MG PO QID PRN PRN For Nausea Nitroglycerin SL (Nitroglycerin SL) 0.4 Mg Tab.subl 0.4 MG SL Q5MIN PRN PRN For Chest Pain Tacrolimus (Tacrolimus) 30 Gm Oint...g. 1 APPLIC TOP BID PRN PRN rash oxyCODONE (oxyCODONE) 5 Mg Tablet 5 MG PO QID PRN PRN For Pain General Time Seen by MD: 12:20 Chief Complaint Other (bradycardia) Hx Obtained From: Patient, Daughter, Other family... (sisters) Arrived By: Wheelchair Sudden in Onset?: No Onset Occurred: More than a week ago... Symptom Duration: More than a week... 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 Roseanne Parker Past Medical History Gastroporesis Anxiety Chronic pain Sleep apnea Tinnitis Hx of stage III chronic kidney disease Reports: Coronary artery disease, Diabetes mellitus, Hyperlipidemia, Hypertension Reports: Depression Past Surgical History Triple bypass 2010 Cardiac Cath 2013 Laminectomy Bladder sling Family History Noncontributory Smoking History Never Smoker Social History Alcohol Use: Denies alcohol use Drug Use: Denies drug use Other Social History: Good social support, Local resident Ambulatory Status Independent Review of Systems Full Review of Systems Constitutional: Denies: Chills, Fever Respiratory: Denies: Non-productive cough, Shortness of breath Cardiovascular: Denies: Chest pain GI: Denies: Nausea, Vomiting Neurologic: Reports: Lightheaded, Syncope (near) Complete sys rev & neg: except as marked. Physical Exam Vital Signs Vital Signs Date Time Temp Pulse Resp B/P Pulse Ox O2 Delivery O2 Flow Rate FiO2 08/29/16 14:17 52 59/20 08/29/16 14:15 41 94/50 08/29/16 12:30 36.6 43 15 84/48 97 Room Air Initial VS: Reviewed Head / Eyes: Atraumatic, Normocephalic, PERRL ENT: Mucous membranes moist, Conjunctiva normal, No scleral icterus Neck: Supple, Non-tender, Full range of motion Abdomen / GI: Soft, Non-tender, No guarding, No rebound, No distention Lymphatic: No lymphadenopathy Extremities: Vascular intact, Neuro intact, No swelling, No tenderness Skin: Warm, Dry, No cyanosis Neurologic: Alert, Oriented, Nonfocal Psychiatric: Mood/affect normal, Behavior normal, Normal thought content General/Constitutional: Awake, Alert, Cooperative Respiratory / Chest: Atraumatic, Breath sounds NL, Breath sounds = bilat, No respiratory distress, No rales, No rhonchi, No wheezing Cardiovascular: Regular rhythm, Heart sounds NL, No murmurs, No rubs, Peripheral circulation NL, Pulses = bilaterally Heart Rate / Rhythm: Positive: Bradycardia Palpable distal pulses Interpretation & Diagnostics Lab Results Interpretation Result Diagram: 08/29/16 1415 08/29/16 1415 Test 08/29/16 13:14 08/29/16 14:15 Hold Purple Top Tube Received (Received) Prothrombin Time 10.7sec (8.1-12.5) Prothromb Time International Ratio 1.00ratio Activated Partial Thromboplast Time 27.8sec (22.8-33.0) Hold Blue Top Tube Received (Received) Hold [place] Top Tube Received (Received) White Blood Count 10.3th/mm3 (3.8-10.1) Red Blood Count 3.64mil/mm3 (3.90-5.20) Hemoglobin 11.0g/dL (12.0-15.6) Hematocrit 33.8% (35.0-46.0) Mean Corpuscular Volume 92.9fL (81-100) Mean Corpuscular Hemoglobin 30.2pg (27.0-35.0) Mean Corpuscular Hemoglobin Concent 32.5% (32.0-37.0) Red Cell Distribution Width 12.8% (12.3-15.4) Platelet Count 220bil/L (150-400) Neutrophils (%) (Auto) 55.0% (40-74) Lymphocytes (%) (Auto) 36.6% (14-46) Monocytes (%) (Auto) 5.4% (4-12) Eosinophils (%) (Auto) 2.5% (0-5) Basophils (%) (Auto) 0.3% (0-3) Sodium Level 132mEq/L (134-144) Potassium Level 4.5mEq/L (3.5-5.2) Chloride Level 95mEq/L (97-108) Carbon Dioxide Level 21mmol/L (18-29) Blood Urea Nitrogen 12mg/dL (8-27) Creatinine 1.01mg/dL (0.57-1.00) Estimat Glomerular Filtration Rate 79mL/min (>59) Glucose Level 231mg/dL (60-99) Calcium Level 9.3mg/dL (8.5-10.1) Magnesium Level 1.3mg/dL (1.6-2.6) Total Bilirubin 0.2mg/dL (0.0-1.2) Aspartate Amino Transf (AST/SGOT) 17U/L (0-50) Alanine Aminotransferase (ALT/SGPT) 13U/L (0-32) Alkaline Phosphatase 70U/L (25-165) Troponin T < 0.010ug/L (0.0-0.011) Pro-B-Type Natriuretic Peptide 382.1pg/mL (0-287) Total Protein 6.4g/dL (6.4-8.4) Albumin 3.8g/dL (3.4-5.0) ECG Interpretation ECG Interpretation: Sinus bradycardia with a rate of 47 bpm LAD Inferior Q waves No ST segment changes No acute T wave abnormalities When compared to prior EKG dated 08/22/16 there are no acute changes present Time: 13:15 Interpreted by: ED physician X-Ray Chest Interpretation Chest Xray Interpretation: IMPRESSION: Sternotomy wires, presumed prior CABG. Source of shortness of breath is not seen. Dictated by: Graham De Jesus M.D. on 08/29/2016 at 14:24 Interpretation / Wet Read by: Interpret - Radiologist Re-Eval/Medical Decision Med Decision/Clinical Course The patient is a 65 year old female with history of diabetes mellitus type II on Metformin, hypertension, coronary artery disease s/p CABG, hyperlipidemia, gastroparesis, GERD, fibromyalgia, anxiety, and depression, who sent to the emergency department from the cardiology office for bradycardia with a heart rate in 40s. Her heart rate is usually in the 60s-80s. Today she has felt lightheaded and like she was going to pass out. Her blood pressure was 63/42 at the clinic. The patient does not have any chest pain, shortness of breath, fever , chills, nausea or vomiting. She has been admitted several times for similar symptoms over the last several months. She was admitted here from 08/22-08/24 for hypotension. She was taken off of metoprolol and discharged home with close cardiology followup. She was also admitted at [place] from 08/27-08/28 for postural hypotension and presyncope as well as bradycardia, type II diabetes, coronary artery disease, and stage III chronic kidney disease. Cortisol testing was normal there. Amlodipine and tizanidine were discontinued but she was continued on lisinopril, isosorbide, atorvastatin, aspirin, gabapentin, fluoxetine, glyburide, lorazepam, meclizine, metoclopramide, oxycodone, pantoprazole, and pramipexole. Her warp hauler is Dr. Parker. Here in the emergency department the patient is borderline hypotensive with normal mentation and in no apparent distress. Postural vital signs were obtained as below: lying flat: 94/50, HR 41, standin/20, HR jumped to 60 then dropped to 52 Previous echocardiogram was reviewed and demonstrated no good explanation for the patient's hypotension and bradycardia. LABS: borderline leukocytosis of 10.3, hct of 33.8, glucose of 231, Na 132, good renal function, BNP 382 CXR: Obtained, reviewed and interpreted by myself shows no evidence of acute infiltrates, effusions or pneumothorax. Cardiac and mediastinal silhouette normal. No bony or soft tissue abnormalities. Patient was aggressively fluid resuscitated and had improvement in her blood pressure remained symptomatically orthostatic. The patient is on multiple antihypertensive medications despite recently discontinuing her beta tyshawn. While these multiple medications may explain her hypotension I see that she is not on any AV normal blocking agents that would explain her significant sinus bradycardia. Patient was Seen and evaluated by warp hauler who suspected that there may be a large degree of polypharmacy contributing to the patient's presentation which seems quite likely to me as well. That being said it is thought that in the setting of her diabetes that she may have underlying autonomic disease and may eventually require placement of the pacemaker. This is her fifth similar presentation and unfortunately I feel that she warrants admission again due to her profound symptomatic hypotension and bradycardia. Patient was admitted to hospitalist service and consultation with cardiology for further management of her multiple medications and consideration for placement of a pacemaker. Source of Hx: Old records, Family Time of Eval: 13:40 Re-Evaluation/Progress Note: Discussed with the patient and family probable need for admission. They understand and agree. Time of Eval: 14:30 Re-Evaluation/Progress Note: Dr. Gutierrez is here seeing the patient. Consultation #1: Referral / Consult Name: Marcelino Gutierrez MD Consulted With: Cardiology Requested Call at: 13:42 Call Returned at: 13:44 Robotics Mechanic: Will see patient, Agrees with eval, Agrees with plan Note: She may need a pacemaker. He wonders if this is related to peripheral nervous system disease secondary to her diabetes. Consultation #2: Referral / Consult Name: Walter Reed MD Consulted With: Hospitalist Call Returned at: 14:47 Robotics Mechanic: Will see patient, Agrees with eval, Agrees with plan, Accepts admit Counseled Regarding: Diagnosis, Lab results, Need for admission Discharge & Departure Primary Impression: Symptomatic bradycardia Additional Impressions: Hypotension Hypotension type: unspecified hypotension type Qualified Code: I95.9 - Hypotension, unspecified Polypharmacy Autonomic disease Orthostatic hypotension dysautonomic syndrome Disposition: ADMITTED TO HOSPITAL Discharge Condition All VS Reviewed: Yes Condition: Stable Referrals: Yehuda Garcia MD (PCP) Crit Care Except Billable Proc Time Spent: 75-104 minutes Services Performed: Patient management by me, Time spent at bedside, Reviewing test results, Reviewing imaging, Discussing patient care, Documentation in record, Time with fam/surrogate Scribe Attestation Portions of this note were transcribed by Teresita Michaels. I, Dr. Francis personally performed the history, physical exam and medical decision-making; I reviewed and confirmed the accuracy of the information in the transcribed note. Signed by: Vlad Mason, 08/29/2016 at 1500. copies to: Yehuda Garcia MD, Beck O MD Aug 29, 2016 12:23 Teresita Michaels Aug 29, 2016 12:54
[2016-08-29] MEDS ORDERED: 0.9% Sodium Chloride 1,000 ML IV ONE (13:40)
[2016-08-29] MEDS ORDERED: Alum-Mag Hydrox-Simeth 30 mL Suspension PO PRN ×2 (13:45→15:20)
[2016-08-29] MEDS ORDERED: Ondansetron 2 mg/mL 2 mL Inj IVPUSH PRN ×2 (13:45→15:20)
--- NOTE | 2016-08-29 14:31 | DRSVH ---
PROCEDURE: X-RAY CHEST ONE VIEW, PORTABLE ([id number]) INDICATIONS: sob TECHNIQUE: One view of the chest was acquired. COMPARISON: [facility], CR, XR CHEST 1VW (PORTABLE), 06/16/2016, 12:48. [facility], CR, XR CHEST 1VW (PORTABLE), 05/30/2016, 12:24. FINDINGS: Surgical changes and devices: CABG.. Lungs and pleura: No pleural effusions or pneumothorax. Lungs are clear. Mediastinum: Mediastinal contours appear normal. Heart size is normal. Bones and chest wall: No suspicious bony lesions. Overlying soft tissues appear unremarkable. IMPRESSION: Sternotomy wires, presumed prior CABG. Source of shortness of breath is not seen. Dictated by: Graham De Jesus M.D. on 08/29/2016 at 14:24 Approved by: Graham De Jesus M.D. on 08/29/2016 at 14:30
[2016-08-29 14:36] LABS: BASOPHILS % (AUTO) 0.3 % (0-3); EOSINOPHILS % (AUTO) 2.5 % (0-5); MONOCYTES % (AUTO) 5.4 % (4-12); Mean Corpuscular Hemoglobin 30.2 pg (27.0-35.0); Mean Corpuscular Volume 92.9 fL (81-100); Platelet Count 220 bil/L (150-400)
[2016-08-29 14:48] LABS: Magnesium 1.3 mg/dL (1.6-2.6)
[2016-08-29 14:53] LABS: TROPONIN T < 0.010 ug/L (0.0-0.011)
[2016-08-29] MEDS ORDERED: EXCEDRIN TENSION PO (15:02)
[2016-08-29] MEDS ORDERED: Polyethylene Glycol (PEG) 17 Gm Powder PO PRN (15:20)
[2016-08-29] MEDS ORDERED: Glucose 40% Oral Gel 15 Gm Tube PO PRN (15:30)
[2016-08-29] MEDS ORDERED: Magnesium Sulf 2 Gm/50mL Water 2 GM in IV Premix 1 EACH IV ONE (15:30)
--- NOTE | 2016-08-29 16:10 | CONS ---
[address] [address] CONSULTATION REPORT PATIENT: MARLENY BERRY : 1950 MR#: [id number] ADMIT: 08/29/2016 JOB ID: [id number] DATE OF SERVICE: 08/29/2016 CARDIOLOGY CONSULTATION: REASON FOR CONSULT: For the evaluation of dizziness, low blood pressure, low heart rate. CHIEF COMPLAINT: Dizziness. PRESENT HISTORY: This 66-year-old pleasant female, who has had multiple hospital admissions in the recent past to [facility] as well as she got hospitalized to [facility] on August 27, 2016 and got discharged yesterday with similar symptoms of dizziness, low blood pressure, known history of coronary artery disease status post three-vessel bypass surgery in March 2010 with MEDRANO graft to LAD, SVG graft to OM, SVG graft to PDA, status post left heart catheterization in [address] Parker for recurrent angina which revealed patent graft but patient has diffusely diseased mid to distal LAD, with preserved LV function with LV ejection fraction 60%-65%, without any significant diastolic dysfunction, without any significant valvular disease, known type 2 diabetes mellitus, history of hypertension, hyperlipidemia, fibromyalgia, chronic back pain on narcotics medication, restless legs syndrome, underlying depression again got admitted because of dizziness. According to the patient, she was lying down and she stood up. She got lightheaded. OBJECTIVE: Blood pressure was low. Did not have any typical chest pain. She did not completely pass out. No stroke-like symptoms. She was brought to the ED. Her heart rate was in 40s. Initial blood pressure was 84/48. Upon standing blood pressure dropped to 59/20. Heart rate increased from 43-52 as per the chart. Cardiology consult was sought. At present, she is in ED laying down. She is not having any active chest pain or shortness of breath. She has received 2 L of fluid. Blood pressure now systolic about 120. When I asked her to do bedside exercise, heart rate went up to 60. She had a recent pharmacological perfusion study in August 2016. At that time LV ejection fraction reported to be 70% and about [id number] size base to mid lateral wall ischemia. The patient denies any fever, cough, expectoration or tingling, numbing sensation. She is on pramipexole for restless legs syndrome from last few years, then she is not feeling well as I mentioned that she had recent multiple hospital admissions. Her medications were adjusted. Ranexa and carvedilol were discontinued. At [facility] yesterday, clonidine and amlodipine was discontinued. She had cortisol stimulation test as per the discharge summary at [facility] which was normal. PAST MEDICAL HISTORY: 1. History of CAD status post three-vessel bypass surgery in 2009. Details as stated above. Repeat left heart catheterization 2012 with patent MEDRANO graft to LAD, SVG graft to OM and PDA but patient has very diffuse small mid to distal [place] LAD. 2. Essential hypertension. 3. Hyperlipidemia. 4. History of fibromyalgia. 5. Anxiety. 6. Depression. 7. GERD. 8. Gastroparesis. 9. Diabetes mellitus. 10. Chronic back pain. 11. Sleep apnea at night. 12. Laminectomy. 13. Bladder sling. ALLERGIES: The patient is allergic to PENICILLIN. SOCIAL HISTORY: Denies any tobacco abuse, alcohol abuse, IV drug abuse or cocaine abuse. MEDICATIONS: As per her discharge medications from [facility] yesterday, she was on: 1. Aspirin 81 mg daily. 2. Atorvastatin 80 mg daily. 3. Excedrin. 4. Fluoxetine 40 mg daily. 5. Gabapentin 600 mg twice a day. 6. Glyburide 2.5 mg daily. 7. Isosorbide mononitrate 30 mg tablet, 1/4 tablet a day. 8. Lisinopril 20 mg two times a day. 9. Magnesium oxide 400 mg twice a day. 10. Meclizine 25 mg as needed. 11. Metformin 500 mg twice a day. 12. Metoclopramide 10 mg four times a day. 13. Nitroglycerin as needed. 14. Oxycodone 5 mg tablet every 4-6 hours. 15. Protonix 40 mg two times a day. 16. Pramipexole 0.25 mg three times a day. 17. Amlodipine and tizanidine were discontinued. PAST SURGICAL HISTORY: As stated above. FAMILY HISTORY: Positive for coronary artery disease. REVIEW OF SYSTEMS: Ten point review of systems were obtained and negative except as stated above. PHYSICAL EXAMINATION: Vitals as stated above along with respiratory rate of 12, oxygen saturation about 95%. HEENT: No significant anemia, jaundice. Neck: No apparent JVD or carotid bruit. Chest: No obvious crepitation or rhonchi. CVS: S1, S2 normal. No S3, no S4. No significant murmur. Abdomen: Obese. No obvious pulsatile mass felt. No obvious hepatosplenomegaly. Extremities: No pedal edema. Vascular: No evidence of critical limb ischemia. LABEL MAKER: Alert, oriented to time, place and person. No obvious motor or sensory deficit. LABORATORIES: WBC 10.3, hemoglobin 11, platelets 228. On August 23 hemoglobin was 11.5. Sodium 132, potassium 4.5, BUN 12, creatinine 1.01, blood sugar 231, magnesium 1.3. Normal bilirubin, AST, ALT. Troponin T within normal limits. ProBNP 382. TSH on August 21, 2016 was 2.2. EKG at 12:30 p.m. today revealed sinus rhythm with sinus bradycardia rate 47, with QRS complexes in lead L3, aVF which are old with some nonspecific ST-T changes. QTc 455 msec. RSR-complex in V1-V2 which is old. ASSESSMENT AND PLAN: Recurrent dizziness from last couple of months along with significant orthostatic hypotension. The patient has multiple etiologies of dizziness. She has known history of vertigo as well as likelihood that she is getting lightheadedness due to orthostatic hypotension. She is diabetic. On top of that, she is on multiple medications which have significant potential to cause orthostatic hypotension. She was bradycardic at rest, however, when I asked to do bedside exercise, heart rate went up to 60 suggestive of preserved chronotropic response. Her QRS is not wide. She denies any recent malignancy or history of amyloidosis. As she is diabetic, she may have autonomic nervous system dysfunction. She has known sleep apnea and she is not being treated for sleep apnea. She is off amlodipine, Ranexa, tizanidine and beta tyshawn. Last dose of beta tyshawn she took it last Saturday. She is on pramipexole for restless legs syndrome, which can cause profound orthostatic hypotension and syncope. She is on narcotics with oxycodone used regularly for low back pain, shoulder pain as well as she takes gabapentin and fluoxetine for fibromyalgia and underlying anxiety and depression. Clinically, I think that she is volume depleted as well. Her blood glucose was uncontrolled. At present, she is not significantly acidotic. After fluid resuscitation her blood pressure is around 120 systolic. At this point of time, I will recommend hospitalist team to carefully look into her medications list and stop those medications which are not life-saving and not essential from quality perspective as well. At this point of time, we will recommend holding all her blood pressure medications. She is not having typical anginal pain at this point of time. Her troponin normal. No new EKG changes. I reviewed her previous left heart catheterization films with Dr. Piper as well as Dr. Santana and discussed the case. She has very diffuse disease of [place] vessels and in 2012 her grafts were patent. Mid to distal LAD does not have good targets. It is a very small vessel. We will recommend treating for sleep apnea. Continue aspirin and statin from cardiac perspective. At this point of time, I will hold isosorbide mononitrate and LORNA inhibitor as well. Will recommend replacing magnesium. Continue telemetry monitoring. Will see how she does. I will discuss her case with Dr. Coleman as well. If she has persistent bradycardia, then probably she will need pacemaker. I discussed those possibilities with the patient and her family. They agreed and concur. Discussed the plan with the ED physician as well. Thanks for the cardiology consult. TOTAL TIME SPENT: Today about 75 minutes including reviewing her old chart.
[2016-08-29] MEDS: Sodium Chloride LOK Flush 10 mL Syringe IVFLUSH SCH (16:30)
[2016-08-29] MEDS: Insulin LISPRO 300 Unit/3 mL Inj SUBQ SCH ×2 (17:30→22:38)
--- NOTE | 2016-08-29 19:11 | PCM.HPMED ---
Subjective Date of Service Aug 29, 2016 Primary Provider: Admitting Physician: Walter Reed MD Primary Care Physician: Yehuda Garcia MD Attending Physician: Walter Reed MD Admit Status: From the Emergency Department, Admit to [facility] Team Chief Complaint: 66-year-old woman with recent history of presyncope, orthostatic hypotension presents with a recurrent episode History of Present Illness: The patient has had numerous recent hospitalizations for symptoms of postural hypotension, associated with bradycardia and neurologic symptoms including gait instability, confusion and dysarthria. Typically occur in the morning after she has taken her medications. She has been checking her heart rate and noted it to be slow at these times. These symptoms began last summer. At that time she would experience these symptoms and go to sleep and they would resolve somewhat later. She feels that they may have worsened after she initiated tizanidine and pramipexole under the guidance of a neurologist. She has numerous other symptomatic disorders, but the presyncopal episodes are not accompanied by chest pain, palpitation, dyspnea, heartburn, or focal neurologic symptoms. She was admitted to [facility] on 06/16/16 - 10/23/15, 08/20-, and 08/22-08/24. During the most recent hospitalization her metoprolol was discontinued, over concern for symptomatic bradycardia. She was evaluated in cardiology clinic and a Zio patch was placed, but removed due to skin irritation. She presented to [facility] on 08/31/16 at which time her tizanidine and amlodipine were discontinued. On the day of admission she awakened feeling essentially normal at 7:30 AM. She checked her blood pressure which was 118/70 with heart rate 62 at approximately 8:30 AM. She took her medications at 9 AM. She subsequently experienced presyncopal sensation associated with dry mouth, dysarthric speech and gait instability. Her son checked her blood pressure and reported that it was low and that her heart rate was slow, but she does not recall these numbers. She presented to the [facility] emergency department at approximately noon at which time heart rate was 40-50 with hypotension and postural changes. Review of Systems: 12 system review of systems performed. Significant findings are noted in the history of present illness. She has numerous symptoms including intermittent angina, daytime sleepiness, frequent heartburn, intermittent recurrent vertigo with tinnitus, but none of these of inactive recently. She endorses moderate anxiety and depressed mood related to her health problems and her son's recent incarceration. Allergies Coded Allergies: Penicillins (Verified Allergy, Severe, RASH, 08/22/16) TAPE (Verified Allergy, Intermediate, rash, 08/22/16) Home Medications Lisinopril 20 mg twice a day Isosorbide mononitrate 120 mg daily Pantoprazole 40 mg twice a day Oxycodone 5 mg every 6 when necessary Metformin 500 mg twice a day Metoclopramide 10 mg 4 times a day Gabapentin 100, 300, 600 (patient states she has been recently taking 300 twice a day) Lorazepam 0.5 mg 3 times a day when necessary Glyburide 2.5 mg daily Magnesium oxide supplement daily Atorvastatin 80 mg daily Meclizine 25 mg 3 times a day ASA 81 mg daily Pramipexole 0.25 mg 3 times a day Fluoxetine 40 mg daily Recently discontinued: Metoprolol, amlodipine, tizanidine PMH # Coronary artery disease # Degenerative joint disease with chronic pain # Obstructive sleep apnea # Depression # GERD # Restless leg syndrome # Vertigo and tinnitus # Obesity class III Family History No family history of neurologic autonomic insufficiency syndromes. Family history notable for diabetes hypertension coronary disease. 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) Additional Information Patient is full code Exam Vital Signs Vital Sign - Last Date Time Temp Pulse Resp B/P Pulse Ox O2 Delivery O2 Flow Rate FiO2 08/29/16 17:56 36.3 43 20 113/63 100 Nasal Cannula 3.00 Exam Constitutional: Obese woman sitting comfortably in bed; no acute distress Eyes: sclerae anicteric, no conjunctival pallor, ENMT: ears, nose atraumatic; oral mucosa moist Neck: supple, JVD difficult to assess Chest: symmetric, no pain or lesions Resp: auscultation clear, no wheezes, rales or dullness Cardiac: S1, S2, regular, no murmur Abdomen: bowel sounds present, nontender, protuberant Musculoskeletal: no joints with acute erythema, swelling Skin and soft tissues: no rash; no pitting edema Peripheral pulses: normal at wrist, feet Lymphatic: no adenopathy cervical Neurological: Cranial Nerves - face symmetric, no nystagmus Reflexes - BJ, KJ symmetric 3+ Motor - 5/5 strength, normal tone Coordination - normal movement, no tremor Sensory - light touch intact in toes Psych & Mental Status - appropriate alert and oriented Lab and Diagnostics Result Diagram: 08/29/16141408/29/161414 Assessment & Plan Ms. Piper is a 66-year-old woman with frequent admissions for presyncopal symptoms. # Orthostatic hypotension and bradycardia. Differential diagnosis is medication toxicity versus intrinsic cardiac dysfunction. The latter diagnosis is very unlikely due to the episodic and medication related timing pattern. She is on no jorge blockers at this point. Her history is very clear that this seems to be a polypharmacy effect. The most suspicious medication tizanidine ( central alpha-2 agonist like clonidine) was discontinued 2 days ago. She is on numerous medications including 2 significant CYP inhibitors: fluoxetine and pantoprazole. She is also on dual dopaminergic agonist agents: metoclopramide and pramipexole. - Stop all nonessential medications - Encourage by mouth hydration - Symptomatic medications including nitroglycerin as needed for chest pain, antihypertensives with hold parameters - I advised patient we will try to avoid using pain medications, lorazepam, restless leg medications, and gabapentin - encourage nonpharmacologic measures for any symptomatic complaints - We will repeat vital signs with orthostatic tests in the morning after medication cessation - Telemetry monitoring - Cardiology consult is following # Type II diabetes mellitus - Hold metformin and glyburide - Insulin basal and bolus - Diabetic diet # Hypertension, chronic. Currently requiring active management due to hypotension. - Lisinopril with hold parameters for less than 140 mmHg. - When necessary amlodipine as needed for SBP greater than 160 mmHg - Avoid arterial vasodilators (hydralazine, labetalol, nifedipine), central sympathomimetics and beta blockers. - Increased dose lisinopril and nitroglycerin pace if needed for severe hypertension # Hypomagnesemia - Supplemented IV - Monitor periodically. Chronic stable problems: Coronary artery disease - when necessary nitroglycerin; hold atorvastatin and aspirin DJD - nonpharmacologic measures for pain control Depression - continue fluoxetine due to long half-life difficult to discontinue GERD - when necessary antacids ALBERT - she does not currently tolerate her CPAP mask, has an appointment for revision in 1 month Venous thrombosis prophylaxis with Lovenox when necessary Disposition: Patient is admitted under observation status. Anticipation is that vital signs will normalize in 24 hours and the patient will return home. Pain Evaluation: Adequate Pain Control VTE Prophylaxis: Sub-Q Enoxaparin Resuscitation Status: CPR: Attempt Resuscitation Time spent 70 minutes copies to: Yehuda Garcia MD; Roseanne Parker MD, Jeffrey W MD Aug 29, 2016 19:11
[2016-08-29] MEDS ORDERED: Pantoprazole 40 mg ER24 Tablet PO SCH (20:30)
[2016-08-29] MEDS ORDERED: Insulin GLARgine 100 Unit/mL Syringe SUBQ SCH (21:00)
[2016-08-30] MEDS: Sodium Chloride LOK Flush 10 mL Syringe IVFLUSH SCH ×2 (00:52→08:00)
--- NOTE | 2016-08-30 03:59 | NUR ---
Care/BP/Tele Assumed care at shift change , A&O x 3 using call light appropriately , SL after Mag rider., Held evening Lisinopril per orders BP less than 150. 2 L O2 per NC , Chronic Back Pain , gave Roxycodone 5 Mg PO, x1 , Tylenol 650 Mg PO x1 Family in room assisting w DARLINE. Papa Adler, Addendum: 08/30/16 at 0611 by SHANIA WEAVER RN Pt is very sensitive to tape,
[2016-08-30 04:17] LABS: BASOPHILS % (AUTO) 0.3 % (0-3); EOSINOPHILS % (AUTO) 2.9 % (0-5); Mean Corpuscular Hemoglobin 29.8 pg (27.0-35.0); Mean Corpuscular Volume 92.4 fL (81-100); NEUTROPHILS % (AUTO) 52.6 % (40-74); Platelet Count 210 bil/L (150-400)
[2016-08-30 04:29] VITALS: BP 152/82; PULSE 62; RESP 19; O2SAT 97
[2016-08-30 05:46] VITALS: PULSE 60
[2016-08-30 08:00] VITALS: PULSE 58
[2016-08-30] MEDS: Insulin LISPRO 300 Unit/3 mL Inj SUBQ SCH ×2 (09:09→12:08)
[2016-08-30 09:24] VITALS: BP 155/77; PULSE 57; RESP 18; O2SAT 98
--- NOTE | 2016-08-30 12:12 | NUR ---
Orthostatics Sitting BP 152/86 HR 65, standing post 3 minutes BP 158/93 HR 69. MD aware and will be by to see the pt later today
[2016-08-30] MEDS ORDERED: AMLO5TAB2 PO (12:31)
[2016-08-30 12:36] VITALS: BP 158/93; PULSE 69
--- NOTE | 2016-08-30 12:45 | PCM.DIMED ---
Discharge Instructions Date of Service Aug 30, 2016 Dates of Hospitalization Aug 29, 2016 at 15:35 Discharge Diagnosis Discharge Diagnosis Low blood pressure and heart rate (orthostatic hypotension) due to multiple medication interactions Medication Instructions Many of your medications have been discontinued. An updated list of your necessary medications is provided below. Essential medicines for your diabetes , heart condition and high blood pressure are continued. You will also receive a new prescription for amlodipine which you may take if systolic blood pressure (the upper number) is greater than 160 on more than one day in a week. You would take this medication one time per day. You should discuss whether any of the discontinued medications may be resumed at your next appointment with Dr. Garcia, or with Dr. Parker. Diet Heart Healthy, Diabetic Activity No restrictions Call your provider Other (feeling faint, confused or with changes in speech or strength of arms and legs.) Patient Instructions You should check your blood pressure once or twice per day. If your systolic blood pressure (the upper number) is greater than 160 on more than one day per week and you should begin to take amlodipine in addition to the twice daily lisinopril. Your goal systolic blood pressure is to be mostly below 140. If your systolic blood pressure is below 100 then do not take that day's dose of lisinopril or amlodipine, and contact Dr. Garcia's office. If your systolic blood pressure is below 90 or if you are having any symptoms of faintness or confusion , then come to the emergency department. We do not feel that your heart rate is a serious problem. If your heart rate is below 50 bpm and you have symptoms of faintness or confusion, then you should contact Dr. Parker's office for guidance. We have discontinued most of the medications that will slow your heart rate, and a heart rate of 50 may be normal for you.. You may continue diabetes, acid reflux, high blood pressure, stomach acid hourly team members, and oxycodone. We recommend that she use the lowest dose of oxycodone possible. We recommend that you try to live without most of the medications that have been given for nerve and neurological problems. We have continued your fluoxetine for depression, although this drug can block the metabolism of other drugs and cause drug interactions. You doctor may consider changing your antidepressant medicine, especially if you need beta tyshawn medications for heart issues. Follow-up Provider: Roseanne Parker MD Follow-up with PCP in: 4 weeks Provider: Yehuda Garcia MD Follow-up in: 1 week (for a posthospitalization follow-up appointment) Dontrell Dee MD Aug 30, 2016 12:45
--- NOTE | 2016-08-30 13:09 | PROG NOTE ---
[address] [address] PROGRESS NOTE PATIENT: MARLENY BERRY : 1950 MR#: [id number] ADMIT: 08/29/2016 JOB ID: [id number] DATE: 08/30/2016 SUBJECTIVE: The patient is feeling much better. She is not having dizziness. She walked to the bathroom. She came back without any dizziness. No chest pain or shortness of breath or PND, orthopnea. OBJECTIVE: Blood pressure 155/77. Heart rate in the 50s to 60s without any profound bradycardia. Oxygen saturation 98%. Neck: No apparent JVP. Chest: No obvious crepitation or rhonchi. CVS: S1, S2 normal. No S3, no S4. No significant new murmur. Abdomen: Obese. Vascular: No evidence of critical limb ischemia. Extremities: No significant pedal edema. Telemetry: Sinus rhythm without any profound bradycardia or sustained ventricular or supraventricular arrhythmias. LABORATORIES: Hemoglobin 11, which is stable. Platelets 210. Sodium 132, potassium 4.5, BUN 12, creatinine 1.01, glucose 231. Troponin-T normal. ASSESSMENT AND PLAN: Recurrent dizziness episode which appears to be multifactorial including history of vertigo, but the patient also had significant orthostatic hypotension which appears to be multifactorial including likely due to multiple medications including blood pressure medications and psych medications as well as medications for chronic back pain, fibromyalgia, restless legs syndrome, including pramipexole, fluoxetine, gabapentin, oxycodone. With fluid, her blood pressure has improved. Repeat orthostatic is negative. Her blood pressure in fact went up to hypertensive range, hence she is back on lisinopril. Her bradycardia has improved. At present she is not on any AV jorge or sinus jorge slowing medications. The patient has known a history of bypass surgery in 2009 with MEDRANO graft to LAD, SVG graft to OM, and SVG graft to PDA. Repeat left heart catheterization in 2012 revealed patent grafts but the patient has small, diffusely diseased mid to distal LAD with poor targets. Her LV function is preserved. She has LV ejection fraction 60% to 65%. At this point of time will recommend optimization of her underlying medical problems and stopping those medications which are not necessary. The patient also understands. From a cardiac perspective she is compensated. She can be discharged home with aspirin, tolerable dose of LORNA inhibitor, and high intensity statin. Will recommend outpatient Holter monitoring and if there is no profound bradycardia then small tolerable dose of beta tyshawn can be reinitiated. Her iron cutter is Dr. Parker and she has an appointment to see her. At this point of time cardiology service will sign off. TIME: Total time spent today was about 35 minutes.
--- NOTE | 2016-08-30 15:07 | NUR ---
Discharge Pt left with family members at 1430. All discharge instructions gone over and understood. IV and tele removed. Called [facility] to make sure they received the escript from the MD. All questions answered, new medications gone over and understood. Follow up apts made.
--- NOTE | 2016-08-30 19:52 | PCM.DC.MED ---
Discharge Summary Date of Service Aug 30, 2016 Dates of Hospitalization Date of Hospital Admission Aug 29, 2016 at 15:35 Date of Discharge: Aug 30, 2016 Providers: Admitting Physician: Walter Reed MD Primary Care Physician: Yehuda Garcia MD Attending Physician: Walter Reed MD Diagnosis at Time of Discharge Diagnosis at Time of Discharge Iatrogenic autonomic insufficiency; Low blood pressure and heart rate due to multiple medication interactions Consultations Cardiology: " Recurrent dizziness episode which appears to be multifactorial including history of vertigo, but the patient also had significant orthostatic hypotension which appears to be multifactorial including likely due to multiple medications including blood pressure medications and psych medications as well as medications for chronic back pain, fibromyalgia, restless legs syndrome, including pramipexole, fluoxetine, gabapentin, oxycodone. With fluid, her blood pressure has improved. Repeat orthostatic is negative. Her blood pressure in fact went up to hypertensive range, hence she is back on lisinopril. Her bradycardia has improved. At present she is not on any AV jorge or sinus jorge slowing medications. The patient has known a history of bypass surgery in 2009 with MEDRANO graft to LAD, SVG graft to OM, and SVG graft to PDA. Repeat left heart catheterization in 2012 revealed patent grafts but the patient has small, diffusely diseased mid to distal LAD with poor targets. Her LV function is preserved. She has LV ejection fraction 60% to 65%. At this point of time will recommend optimization of her underlying medical problems and stopping those medications which are not necessary. The patient also understands. From a cardiac perspective she is compensated. She can be discharged home with aspirin, tolerable dose of LORNA inhibitor, and high intensity statin. Will recommend outpatient Holter monitoring and if there is no profound bradycardia then small tolerable dose of beta tyshawn can be reinitiated. Her mortarman is Dr. Parker and she has an appointment to see her. At this point of time cardiology service will sign off." Marcelino Gutierrez MD 08/30/16 3428 Brief History History of Present Illness (per admission note): The patient has had numerous recent hospitalizations for symptoms of postural hypotension, associated with bradycardia and neurologic symptoms including gait instability, confusion and dysarthria. Typically occur in the morning after she has taken her medications. She has been checking her heart rate and noted it to be slow at these times. These symptoms began last summer. At that time she would experience these symptoms and go to sleep and they would resolve somewhat later. She feels that they may have worsened after she initiated tizanidine and pramipexole under the guidance of a neurologist. She has numerous other symptomatic disorders, but the presyncopal episodes are not accompanied by chest pain, palpitation, dyspnea, heartburn, or focal neurologic symptoms. She was admitted to [facility] on 06/16/16 - 10/23/15, 08/20-, and 08/22-08/24. During the most recent hospitalization her metoprolol was discontinued, over concern for symptomatic bradycardia. She was evaluated in cardiology clinic and a Zio patch was placed, but removed due to skin irritation. She presented to [facility] on 08/[facility]16 at which time her tizanidine and amlodipine were discontinued. On the day of admission she awakened feeling essentially normal at 7:30 AM. She checked her blood pressure which was 118/70 with heart rate 62 at approximately 8:30 AM. She took her medications at 9 AM. She subsequently experienced presyncopal sensation associated with dry mouth, dysarthric speech and gait instability. Her son checked her blood pressure and reported that it was low and that her heart rate was slow, but she does not recall these numbers. She presented to the [facility] emergency department at approximately noon at which time heart rate was 40-50 with hypotension and postural changes. Hospital Course Ms. Piper is a 66-year-old woman with frequent admissions for presyncopal symptoms. # Orthostatic hypotension and bradycardia. Differential diagnosis is medication toxicity versus intrinsic cardiac dysfunction. Drug induced autonomic dysfunction is most likely due to the episodic and medication related timing pattern. She is on no jorge blockers at this point. The most suspicious medication tizanidine (central alpha-2 agonist like clonidine) was discontinued 2 days ago. She is on numerous medications including 2 significant CYP inhibitors: fluoxetine and to a lesser extent pantoprazole. She is also on dual dopaminergic agonist agents: metoclopramide and pramipexole. - Her symptoms improve and she experienced entirely normal orthostatic blood pressure response on the morning after discontinuation of multiple medications - It is not clear which is the offending combination but we have advised her to stop taking most of her neurological medications, to continue primarily with cardiac, gastrointestinal, diabetic and when necessary opioid analgesic - Further follow-up with Dr. Parker, as described in the cardiology consult note # Type II diabetes mellitus - Resume usual medications # GERD. Patient was asymptomatic during this admission. She reports to take metoclopramide for GERD. She is recently initiated pantoprazole. Letter is obviously much better medication for this. She is little evidence for diabetic autonomic neuropathy to suggest that she needs medical metoclopramide for gastric emptying. 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 Currently requiring active management due to hypotension. After presentation with systolic blood pressures of 84-94, then discontinuation of numerous meds, her systolic blood pressure 24 hours later was 146-158. She will require antihypertensives. Seems best to avoid jorge blockers, as well as vasodilators and diuretics which may complicate picture of orthostatic hypotension. - Resume lisinopril 20 mg twice a day - Description was given for When necessary amlodipine as needed for SBP greater than 160 mmHg 2 days per week; family is careful monitoring her blood pressure. - Suggest to avoid Avoid arterial vasodilators (hydralazine, labetalol, nifedipine), central sympathomimetics and beta blockers. # Hypomagnesemia - Supplemented IV - Discharged to continue her usual home oral supplement # Restless leg syndrome, chronic pain, anxiety - patient was asymptomatic after discontinuing gabapentin, lorazepam, pramipexole. We have advised her that symptoms may recur for which these drugs are indicated, but that she should consider nonpharmacologic approaches to some of her neurologic complaints. - She and family seem to understand this # Depression, chronic. Due to long half-life we elected not to discontinue fluoxetine. Fluoxetine is a CYP 2-D inhibitor, known to affect the metabolism of beta blockers and other meds. - It would be desirable to switch to an alternate antidepressant agent, but this is deferred to her primary care provider Exam Vital Signs (Last) Date Time Temp Pulse Resp B/P Pulse Ox O2 Delivery O2 Flow Rate FiO2 08/30/16 12:36 69 158/93 08/30/16 09:24 36.8 18 98 Nasal Cannula 2.00 Exam General: Class III obese woman but no acute distress Orthostatic vital signs today: Supine 1554/77, HR 57; 3 minutes upright 158/93, HR 69. HEENT: sclerae anicteric, oral mucosa moist Neck: no JVD Chest: clear to auscultation Cardiac: S1S2, regular, no murmur Abdomen: BS normal, non-tender Extremities: No pitting edema Neuro: A&O, cranial nerves symmetric, motor strength 5/5, coordination normal Test 08/29/16 13:14 08/29/16 14:15 08/30/16 03:55 Hold Purple Top Tube Received (Received) Prothrombin Time 10.7sec (8.1-12.5) Prothromb Time International Ratio 1.00ratio Activated Partial Thromboplast Time 27.8sec (22.8-33.0) Hold Blue Top Tube Received (Received) Hold [place] Top Tube Received (Received) Sodium Level 132mEq/L (134-144) Potassium Level 4.5mEq/L (3.5-5.2) Chloride Level 95mEq/L (97-108) Carbon Dioxide Level 21mmol/L (18-29) Blood Urea Nitrogen 12mg/dL (8-27) Creatinine 1.01mg/dL (0.57-1.00) Estimat Glomerular Filtration Rate 79mL/min (>59) Glucose Level 231mg/dL (60-99) Calcium Level 9.3mg/dL (8.5-10.1) Magnesium Level 1.3mg/dL (1.6-2.6) Total Bilirubin 0.2mg/dL (0.0-1.2) Aspartate Amino Transf (AST/SGOT) 17U/L (0-50) Alanine Aminotransferase (ALT/SGPT) 13U/L (0-32) Alkaline Phosphatase 70U/L (25-165) Troponin T < 0.010ug/L (0.0-0.011) Pro-B-Type Natriuretic Peptide 382.1pg/mL (0-287) Total Protein 6.4g/dL (6.4-8.4) Albumin 3.8g/dL (3.4-5.0) White Blood Count 9.6th/mm3 (3.8-10.1) Red Blood Count 3.69mil/mm3 (3.90-5.20) Hemoglobin 11.0g/dL (12.0-15.6) Hematocrit 34.1% (35.0-46.0) Mean Corpuscular Volume 92.4fL (81-100) Mean Corpuscular Hemoglobin 29.8pg (27.0-35.0) Mean Corpuscular Hemoglobin Concent 32.3% (32.0-37.0) Red Cell Distribution Width 12.6% (12.3-15.4) Platelet Count 210bil/L (150-400) Neutrophils (%) (Auto) 52.6% (40-74) Lymphocytes (%) (Auto) 38.0% (14-46) Monocytes (%) (Auto) 6.0% (4-12) Eosinophils (%) (Auto) 2.9% (0-5) Basophils (%) (Auto) 0.3% (0-3) Discharge Medications Discharge Medications Aspirin (Aspirin) 81 Mg Tablet 81 MG PO DAILY (Reported) Atorvastatin Calcium (Atorvastatin Calcium) 80 Mg Tablet 80 MG PO DAILY ( Reported) Fluoxetine (Fluoxetine) 40 Mg Capsule 40 MG PO DAILY (Reported) Glyburide (Glyburide) 2.5 Mg Tablet 2.5 MG PO DAILY (Reported) Lisinopril (Lisinopril) 20 Mg Tablet 20 MG PO BID (Reported) Magnesium Oxide (Magnesium Oxide) 400 Mg Tablet 400 MG PO BID (Reported) Metformin (Metformin) 500 Mg Tablet 500 MG PO BID (Reported) Multivitamin (Once Daily) 1 Each Tablet 1 EACH PO DAILY (Reported) Pantoprazole DR (Pantoprazole DR) 40 Mg Tablet.dr 40 MG PO BID (Reported) As needed ([Excedrin Tension]) 500mg/65mg 1 EACH PO TID PRN PRN For Headache (Reported) Amlodipine (Amlodipine) 5 Mg Tablet 5 MG PO DAILY PRN PRN HYPERtension Take once per day if systolic blood pressure is more than 160 on two days. Prescribed by: KATI PLASCENCIA MD Nitroglycerin SL (Nitroglycerin SL) 0.4 Mg Tab.subl 0.4 MG SL Q5MIN PRN PRN For Chest Pain (Reported) Tacrolimus (Tacrolimus) 30 Gm Oint...g. 1 APPLIC TOP BID PRN PRN rash (Reported ) oxyCODONE (oxyCODONE) 5 Mg Tablet 5 MG PO QID PRN PRN For Pain (Reported) Additional med instructions Many of your medications have been discontinued. An updated list of your necessary medications is provided below. Essential medicines for your diabetes , heart condition and high blood pressure are continued. You will also receive a new prescription for amlodipine which you may take if systolic blood pressure (the upper number) is greater than 160 on more than one day in a week. You would take this medication one time per day. You should discuss whether any of the discontinued medications may be resumed at your next appointment with Dr. Garcia, or with Dr. Parker. Followup Plan Discharge Diet: Heart Healthy, Diabetic Discharge Activity: No restrictions Patient Instructions You should check your blood pressure once or twice per day. If your systolic blood pressure (the upper number) is greater than 160 on more than one day per week and you should begin to take amlodipine in addition to the twice daily lisinopril. Your goal systolic blood pressure is to be mostly below 140. If your systolic blood pressure is below 100 then do not take that day's dose of lisinopril or amlodipine, and contact Dr. Garcia's office. If your systolic blood pressure is below 90 or if you are having any symptoms of faintness or confusion , then come to the emergency department. We do not feel that your heart rate is a serious problem. If your heart rate is below 50 bpm and you have symptoms of faintness or confusion, then you should contact Dr. Parker's office for guidance. We have discontinued most of the medications that will slow your heart rate, and a heart rate of 50 may be normal for you.. You may continue diabetes, acid reflux, high blood pressure, stomach acid letter of credit clerk, and oxycodone. We recommend that she use the lowest dose of oxycodone possible. We recommend that you try to live without most of the medications that have been given for nerve and neurological problems. We have continued your fluoxetine for depression, although this drug can block the metabolism of other drugs and cause drug interactions. You doctor may consider changing your antidepressant medicine, especially if you need beta tyshawn medications for heart issues. Follow-up Provider: Roseanne Parker MD Follow-up with PCP in: 4 weeks Provider: Yehuda Garcia MD Follow-up in: 1 week (for a posthospitalization follow-up appointment) Time spent 45 minutes copies to: Yehuda Garcia MD; Roseanne Parker MD, Jeffrey W MD Aug 30, 2016 12:46
== END 2016-08-30 14:25 | disposition home or self-care (01) ==
LOC: SED 12:01 → INTOOBSV 15:35 → PCC 15:35
PROVIDERS: ADMIT Internal Medicine; ATTEND Internal Medicine
DX: G90.9 Disorder of the autonomic nervous system, unspecified (principal); T50.905A Adverse effect of unspecified drugs, medicaments and biological substances, initial encounter; I95.1 Orthostatic hypotension; R00.1 Bradycardia, unspecified; E11.43 Type 2 diabetes mellitus with diabetic autonomic (poly)neuropathy; E11.22 Type 2 diabetes mellitus with diabetic chronic kidney disease; N18.3 Chronic kidney disease, stage 3 (moderate); I12.9 Hypertensive chronic kidney disease with stage 1 through stage 4 chronic kidney disease, or unspecified chronic kidney disease; E83.42 Hypomagnesemia; R42 Dizziness and giddiness; I95.9 Hypotension, unspecified; I25.10 Atherosclerotic heart disease of native coronary artery without angina pectoris; E78.5 Hyperlipidemia, unspecified; K21.9 Gastro-esophageal reflux disease without esophagitis; K31.84 Gastroparesis; G89.29 Other chronic pain; G47.33 Obstructive sleep apnea (adult) (pediatric); E66.9 Obesity, unspecified; M79.7 Fibromyalgia; F41.9 Anxiety disorder, unspecified; F32.9 Major depressive disorder, single episode, unspecified; Z79.84 Long term (current) use of oral hypoglycemic drugs; Z95.1 Presence of aortocoronary bypass graft; Z88.0 Allergy status to penicillin; Z91.040 Latex allergy status; Z79.82 Long term (current) use of aspirin; Z68.38 Body mass index [BMI] 38.0-38.9, adult
CPT/HCPCS: 36415; 71010; 80053; 83735; 83880; 84484; 85025; 85610; 85730; 93005; 96361; 96374; 99291; 99292; G0378; J1650; J1815; J7030

== ENCOUNTER 2017-02-16 07:56 | Emergency (ER) | payer OTHER ==
[~2017-02-16 07:56] MED LIST changes: +AMLO5TAB2 PO; +EXCEDRIN TENSION PO; -GABA-502 PO; -ISOS120T6 PO; -LORA0.5T PO; -MECL-114 PO; -METO10TA3 PO; -PRAM0.256 PO; -TIZA4TAB4 PO
[2017-02-16 08:01] VITALS: BP 109/74; PULSE 54; RESP 14; O2SAT 98
--- NOTE | 2017-02-16 08:10 | ED.REPORT ---
HPI-Extremity Problem Lower Date of Service Feb 16, 2017 ED Provider: Nina More MD The pt is a 66 y/o female w/ a hx of diabetes, HTN, hyperlipidemia, and chronic generalized pain presenting to the ED due to a R ankle injury 2 days ago. She describes walking stepping in a hole w/ her left foot, and twisting her R ankle. The pain increased as of this morning and she also has an abrasion to her R knee. There is slight swelling of the ankle along with the pain. Nursing Notes Stated Complaint: RT INJURED ANKLE Chief Complaint: R ankle injury Nursing Notes Reviewed: Yes Allergies: Coded Allergies: Penicillins (Verified Allergy, Severe, RASH, 08/22/16) TAPE (Verified Allergy, Intermediate, rash, 08/22/16) Scheduled Aspirin (Aspirin) 81 Mg Tablet 81 MG PO DAILY Atorvastatin Calcium (Atorvastatin Calcium) 80 Mg Tablet 80 MG PO DAILY Fluoxetine (Fluoxetine) 40 Mg Capsule 40 MG PO DAILY Glyburide (Glyburide) 2.5 Mg Tablet 2.5 MG PO DAILY Lisinopril (Lisinopril) 20 Mg Tablet 20 MG PO BID Magnesium Oxide (Magnesium Oxide) 400 Mg Tablet 400 MG PO BID Metformin (Metformin) 500 Mg Tablet 500 MG PO BID Multivitamin (Once Daily) 1 Each Tablet 1 EACH PO DAILY Pantoprazole DR (Pantoprazole DR) 40 Mg Tablet.dr 40 MG PO BID Scheduled PRN ([Excedrin Tension]) 500mg/65mg 1 EACH PO TID PRN PRN For Headache Amlodipine (Amlodipine) 5 Mg Tablet 5 MG PO DAILY PRN PRN HYPERtension Take once per day if systolic blood pressure is more than 160 on two days. Nitroglycerin SL (Nitroglycerin SL) 0.4 Mg Tab.subl 0.4 MG SL Q5MIN PRN PRN For Chest Pain Tacrolimus (Tacrolimus) 30 Gm Oint...g. 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 Past Medical History Gastroporesis Anxiety Chronic pain Sleep apnea Tinnitis Hx of stage III chronic kidney disease Reports: Coronary artery disease, Diabetes mellitus, Hyperlipidemia, Hypertension Reports: Depression Past Surgical History Triple bypass 2010 Cardiac Cath 2013 Laminectomy Bladder sling Family History Noncontributory Smoking History Never Smoker Social History Alcohol Use: Denies alcohol use Drug Use: Denies drug use Other Social History: Good social support, Local resident Ambulatory Status Independent Review of Systems R knee abrasion Musculoskeletal: Reports: Joint pain (R ankle), Joint swelling (R ankle) Complete sys rev & neg: except as marked. Physical Exam Initial Vital Signs Vital Signs (First) Date Time Temp Pulse Resp B/P Pulse Ox O2 Delivery O2 Flow Rate FiO2 02/16/17 08:01 37.1 54 14 109/74 98 Room Air Initial VS: Reviewed General/Constitutional: Well-developed, Well-nourished Head / Eyes: Atraumatic, Normocephalic, PERRL ENT: Mucous membranes moist, Conjunctiva normal, No scleral icterus Neck: Supple, Non-tender, Full range of motion Cardiovascular: Regular rate & rhythm, Heart sounds normal, Intact distal pulses Abdomen / GI: Soft, Non-tender, No guarding, No rebound, No distention Neurologic: Alert, Oriented, Nonfocal Psychiatric: Mood/affect normal, Behavior normal, Normal thought content Lower Extremity / Pelvis / MS: No deformity, Neurologic intact, Vascular intact Tenderness to R proximal fibula R knee ligaments are stable No effusion to R knee Right Ankle: Positive: Swelling present... (slight swelling to lateral aspect of ankle w/ no point tenderness ) Skin: Warm, Dry R knee abrasion Interpretation & Diagnostics X-Ray Interpretation Xray Interpretation: IMPRESSION: No acute fractures or dislocations. Dictated by: Doc Carrasco M.D. on 02/16/2017 at 9:48 Approved by: Doc Carrasco M.D. on 02/16/2017 at 9:49 X-Ray Ordered: Ankle right Interpretation / Wet Read by: Interpret - Radiologist Xray Interpretation: IMPRESSION: No acute fractures or dislocations. Dictated by: Doc Carrasco M.D. on 02/16/2017 at 11:26 Approved by: Doc Carrasco M.D. on 02/16/2017 at 11:26 X-Ray Ordered: Tibia fibula right Interpretation / Wet Read by: Interpret - Radiologist Procedures Splint Application - Fx Mgt Time: 11:37 Procedure Performed by: ED physician Precise Anatomic Location: LORNA wrap to Right ankle for stablility and comfort. NV intact after wrap placed. Re-Eval/Medical Decision Re-Evaluation/Progress : Time of Eval: 11:35 Re-Evaluation/Progress Note: Pt rechecked. Informed pt of plan for treatment. Pt understands and agrees with plan for treatment. F/U instructions and RTER warnings given. All questions addressed. Counseled Regarding: Diagnosis, Lab results, Need for follow-up, When/why to return to ED Discharge & Departure Impression: Primary Impression: Ankle sprain Encounter type: initial encounter Involved ligament of ankle: unspecified ligament Laterality: right Qualified Code: S93.401A - Sprain of unspecified ligament of right ankle, initial encounter Additional Impression: Sprain of lateral collateral ligament of right knee Disposition: Home Discharge Condition All VS Reviewed: Yes Condition: Stable Patient Instructions: Ankle Sprain (ED) Additional Instructions: Thank for you entrusting us with your care today. You were diagnosed with an ankle sprain. Please take the Lyrica and Oxycodone as needed for the pain. It is safe to take Ibuprofen along with the Lyrica and Oxycodone. Please use the LORNA wrap as needed and keep your ankle elevated and use ice to help decrease the swelling. Follow up with Dr. Garcia with any further questions or concerns. I hope you feel better soon. Referrals: Yehuda Garcia MD (PCP) Scribe Attestation Portions of this note were transcribed by Rodrick Pierre. I, Dr. More personally performed the history, physical exam and medical decision-making; I reviewed and confirmed the accuracy of the information in the transcribed note. copies to: Yehuda Garcia MD, Shawna L MD Feb 16, 2017 08:10 Rodrick Pierre Feb 16, 2017 10:54
--- NOTE | 2017-02-16 09:50 | DRSVH ---
PROCEDURE: X-RAY RIGHT ANKLE, MINIMUM THREE VIEWS ([id number]) INDICATIONS: FALL TECHNIQUE: 3 views of the ankle were acquired. COMPARISON: None. FINDINGS: Bones: No fractures or dislocations. Ankle mortise is normally aligned. No suspicious bony lesions . Soft tissues: No tibiotalar joint effusion. Achilles tendon appears normal. IMPRESSION: No acute fractures or dislocations. Dictated by: Doc Carrasco M.D. on 02/16/2017 at 9:48 Approved by: Doc Carrasco M.D. on 02/16/2017 at 9:49
--- NOTE | 2017-02-16 11:28 | DRSVH ---
PROCEDURE: X-RAY RIGHT TIBIA/FIBULA, TWO VIEWS ([id number]) INDICATIONS: need to see proximal fibula too RT INJURED ANKLE TECHNIQUE: 2 views of the tibia and fibula were acquired. COMPARISON: None. FINDINGS: Bones: No fractures or dislocations. No suspicious bony lesions. Soft tissues: No suspicious soft tissue calcifications or masses. IMPRESSION: No acute fractures or dislocations. Dictated by: Doc Carrasco M.D. on 02/16/2017 at 11:26 Approved by: Doc Carrasco M.D. on 02/16/2017 at 11:26
== END 2017-02-16 11:35 | disposition home or self-care (01) ==
LOC: SED 07:56
DX: S93.401A Sprain of unspecified ligament of right ankle, initial encounter (principal); S83.421A Sprain of lateral collateral ligament of right knee, initial encounter; W18.42XA Slipping, tripping and stumbling without falling due to stepping into hole or opening, initial encounter; Y93.01 Activity, walking, marching and hiking; Y92.9 Unspecified place or not applicable; Y99.8 Other external cause status; E11.9 Type 2 diabetes mellitus without complications; I12.9 Hypertensive chronic kidney disease with stage 1 through stage 4 chronic kidney disease, or unspecified chronic kidney disease; E78.5 Hyperlipidemia, unspecified; G89.29 Other chronic pain; I25.10 Atherosclerotic heart disease of native coronary artery without angina pectoris; N18.3 Chronic kidney disease, stage 3 (moderate); Z79.82 Long term (current) use of aspirin; Z79.84 Long term (current) use of oral hypoglycemic drugs; Z88.0 Allergy status to penicillin